=== PATIENT | male | born 1950 | race Caucasian/White ===

== ENCOUNTER 2018-01-08 15:07 | Observation (INO) | payer MEDICARE ==
[2018-01-08] MEDS ORDERED: solu-MEDROL 125 MG IV ONE (15:24)
[2018-01-08] MEDS ORDERED: DUONEB 0.5-3 MG/3 ml Neb IH ONE ×2 (15:24→15:49)
[2018-01-08] MEDS ORDERED: ROCEPHIN 1 Gm-D5w 50 ml Bag** 1 G/50 ML IVPB IV STA (15:24)
--- NOTE | 2018-01-08 15:33 | ERPHSYRPT ---
- History of Present Illness Time Seen by Provider: 01/08/18 15:15 Source: patient Exam Limitations: clinical condition Patient Subjective Stated Complaint: SOB since Friday, worse today Triage Nursing Assessment: Pt presents to the ED with complaints of SOB. Pt states he was put on Zithromax on Friday for complaint, states SOB became worse today. Pt denies pain or other complaints, no distress noted, skin PWD. Physician History: PATIENT WITH A HISTORY OF COPD, AND HYPERTENSION COMPLAINS OF COUGH ASSOCIATED WITH DYSPNEA UPON EXERTION X 5 DAYS, EVALUATED BY PRIMARY CARE PROVIDER PLACED ONTO ANTIBIOTIC ZITHROMAX AND MEDROL DOSE PACK 2 DAYS AGO WITH NO IMPROVEMENT. PATIENT COMPLAINS OF INCREASING DYSPNEA TODAY, NO IMPROVEMENT WITH NEBULIZERS. DENIES FEVER, CHILLS OR CHEST PAIN. Timing/Duration: day(s) Activities at Onset: activity Severity of Dyspnea-Max: moderate Severity of Dyspnea-Current: moderate Possible Cause: allergen exposure Modifying Factors: Improves With: albuterol nebulizer, exertion Associated Symptoms: constant International travel in last 2 weeks: No Allergies/Adverse Reactions: No Known Drug Allergies Allergy (Verified 01/08/18 15:12) Home Medications: Budesonide/Formoterol Fumarate [Symbicort 160-4.5 Mcg Inhaler] 2 puff IN DAILY 01/08/18 [History] Gemfibrozil 600 mg PO DAILY 01/08/18 [History] Levothyroxine Sodium 50 mcg PO DAILY 01/08/18 [History] Lisinopril 10 mg PO DAILY 01/08/18 [History] Montelukast Sodium 10 mg [Singulair 10 MG] 10 mg PO DAILY 01/08/18 [History] Roflumilast [Daliresp] 500 mcg PO DAILY 01/08/18 [History] Verapamil HCl 40 mg PO TID 01/08/18 [History] methylPREDNISolone [Methylprednisolone] 1 ea PO DAILY 01/08/18 [History] Hx Tetanus, Diphtheria Vaccination/Date Given: No Hx Influenza Vaccination/Date Given: Yes Hx Pneumococcal Vaccination/Date Given: Yes Immunizations Up to Date: Yes - Review of Systems Constitutional: No Fever, No Chills Eyes: No Symptoms Ears, Nose, & Throat: No Symptoms Respiratory: Cough, Dyspnea, Dyspnea on Exertion (GREER) Cardiac: No Symptoms, No Chest Pain, No Edema, No Syncope Abdominal/Gastrointestinal: No Symptoms, No Abdominal Pain, No Nausea, No Vomiting, No Diarrhea Genitourinary Symptoms: No Symptoms, No Dysuria Musculoskeletal: No Symptoms, No Back Pain, No Neck Pain Skin: No Rash Neurological: No Dizziness, No Focal Weakness, No Sensory Changes Psychological: No Symptoms Endocrine: No Symptoms All Other Systems: Reviewed and Negative - Past Medical History Neurological History: No Pertinent History Cardiac History: Hypertension Respiratory History: COPD Endocrine Medical History: Hypothyroidism Musculoskeletal History: No Pertinent History - Past Surgical History Past Surgical History: Yes Neuro Surgical History: No Pertinent History Cardiac: No Pertinent History Respiratory: No Pertinent History Gastrointestinal: Hernia Repair Genitourinary: No Pertinent History Musculoskeletal: No Pertinent History Male Surgical History: No Pertinent History - Social History Smoking Status: Former smoker Exposure to second hand smoke: Yes Drug Use: none Patient Lives Alone: No - Nursing Vital Signs Nursing Vital Signs: Initial Vital Signs Temperature 97.8 F 01/08/18 15:08 Pulse Rate 116 H 01/08/18 15:08 Respiratory Rate 16 01/08/18 15:08 Blood Pressure 184/112 01/08/18 15:08 O2 Sat by Pulse Oximetry 95 01/08/18 15:08 Pain Scale Pain Intensity 0 - Physical Exam General Appearance: mild distress Eye Exam: PERRL/EOMI Neck Exam: normal inspection, supple Respiratory Exam: diminished breath sounds, other (NO EVIDENCE OF WHEEZES OR RHONCHI) Cardiovascular/Chest Exam: normal heart sounds, regular rate/rhythm Abdominal/Gastrointestinal Exam: soft, No tenderness, No distention, No mass Extremity Exam: non-tender, normal range of motion, normal inspection, no calf tenderness, no pedal edema Peripheral Pulses Exam: carotid (R): 2+, carotid (L): 2+, femoral (R): 2+, femoral (L): 2+, dorsalis-pedis (R): 2+, dorsalis-pedis (L): 2+ Neurologic Exam: alert, oriented x 3, cooperative, proofsheet corrector II-XII nml as tested, sensation nml, No motor deficits Skin Exam: normal color, warm, No dry SpO2 Interpretation: normal SpO2: 95 Oxygen Delivery: Room Air - Course EKG Interpreted by Me: RATE, NORMAL AXIS, Non-specific ST Changes (RATE 111) - Radiology Exams Chest X-ray Interpretation: Discussed w/ radiologist, Negative, No Infiltrates Ordered Tests: Active Orders 24 hr Category Date Time Status Up Ad Valeria ROUTINE Activity 01/08/18 17:59 Ordered Code Status Order ROUTINE Care 01/08/18 17:59 Ordered EKG-ER Only STAT Care 01/08/18 15:24 Active IV Care Q6H Care 01/08/18 17:59 Ordered IV Insertion STAT Care 01/08/18 15:24 Active Oxygen-ED Only NASAL CANNULA 2 lpm Care 01/08/18 15:[address] in Observation ROUTINE Care 01/08/18 17:59 Ordered Terrance Hose, Apply ROUTINE Care 01/08/18 17:59 Ordered Telemetry ROUTINE Care 01/08/18 17:59 Ordered Vital Signs Q4H Care 01/08/18 17:59 Ordered Weight,Daily 0600 Care 01/08/18 17:59 Ordered Regular Diet Diet 01/08/18 Breakfast Ordered CHEST 1 VIEW (PORTABLE) Stat Exams 01/08/18 15:25 Completed PULMONARY PERF VENTILATION [NUCMED] Stat Exams 01/08/18 16:32 Ordered BLOOD CULTURE Stat Lab 01/08/18 15:55 Received CBC W DIFF Stat Lab 01/08/18 15:20 Completed CMP Stat Lab 01/08/18 15:20 Completed D-DIMER QUANTITATION Stat Lab 01/08/18 15:20 Completed Lactic Acid Stat Lab 01/08/18 16:00 Completed MAGNESIUM Stat Lab 01/08/18 15:20 Completed Manual Differential NC Stat Lab 01/08/18 15:20 Completed TROPONIN Q3H Lab 01/08/18 15:20 Completed TROPONIN Q3H Lab 01/08/18 18:30 Ordered TROPONIN Q3H Lab 01/08/18 21:30 Ordered TROPONIN Q3H Lab 01/09/18 00:30 Ordered TROPONIN Q3H Lab 01/09/18 03:30 Ordered Oxygen NASAL CANNULA 2 lpm RT 01/08/18 17:59 Ordered Peak Expiratory Flow Rate ONCE RT 01/08/18 15:58 Completed Pulse Oximetry CONTINUOUS RT 01/08/18 18:00 Ordered Respiratory Nebulizer Q4H RT 01/08/18 17:59 Ordered Respiratory Nebulizer STAT RT 01/08/18 15:26 Completed Respiratory Nebulizer STAT RT 01/08/18 18:04 Ordered Respiratory Therapy Consult ROUTINE RT 01/08/18 17:59 Ordered Transfer Order Routine Transfer 01/08/18 Ordered Medication Summary Generic Name Dose Route Start Last Admin Trade Name Bartolome PRN Reason Stop Dose Admin Acetaminophen 650 mg 01/08/18 18:01 Tylenol 325 Mg PO 02/07/18 18:00 Q4H PRN PRN PAIN AND/OR FEVER Albuterol/Ipratropium 3 ml 01/08/18 19:00 Duoneb 0.5-3 Mg/3 Ml Neb IH 02/07/18 18:59 Q4HRT TERESA Sodium Chloride 1,000 mls @ 50 mls/hr 01/08/18 15:30 01/08/18 15:40 Sodium Chloride 0.9% 1000 Ml IV 02/07/18 15:29 50 mls/hr .Q20H TERESA Administration Azithromycin 500 mg in 250 mls @ 250 mls/hr 01/08/18 17:07 01/08/18 17:23 Zithromax 500 Mg/ 250 Ml Nacl Premix IV 01/08/18 18:06 250 mls/hr STAT STA 250 mls/hr Administration Azithromycin 500 mg in 250 mls @ 250 mls/hr 01/09/18 10:00 Zithromax 500 Mg/ 250 Ml Nacl Premix IV 02/08/18 09:59 Q24H10 TERESA Ceftriaxone Sodium/Dextrose 1 g in 50 mls @ 100 mls/hr 01/09/18 10:00 Rocephin 1 Gm-D5w 50 Ml Bag IV 02/08/18 09:59 Q24H10 TERESA Discontinued Medications Generic Name Dose Route Start Last Admin Trade Name Bartolome PRN Reason Stop Dose Admin Albuterol/Ipratropium 3 ml 01/08/18 15:24 01/08/18 15:54 Duoneb 0.5-3 Mg/3 Ml Neb IH 01/08/18 15:25 3 ml STAT ONE Administration Albuterol/Ipratropium Confirm 01/08/18 15:49 Duoneb 0.5-3 Mg/3 Ml Neb Administered 01/08/18 15:50 Dose 3 ml IH .STK-MED ONE Guaifenesin/Codeine Phosphate 10 ml 01/08/18 17:06 01/08/18 17:23 Robitussin Ac Syrup Unit Dose Cup PO 01/08/18 17:07 10 ml STAT STA Administration Guaifenesin/Codeine Phosphate Confirm 01/08/18 17:20 Robitussin Ac Syrup Unit Dose Cup Administered 01/08/18 17:21 Dose 10 ml .ROUTE .STK-MED ONE Ceftriaxone Sodium/Dextrose 1 g in 50 mls @ 100 mls/hr 01/08/18 15:24 16:08 Rocephin 1 Gm-D5w 50 Ml Bag IV 01/08/18 15:53 100 mls/hr STAT STA 100 mls/hr Administration Ceftriaxone Sodium/Dextrose Confirm 01/08/18 15:37 Rocephin 1 Gm-D5w 50 Ml Bag Administered 01/08/18 15:38 Dose 1 g in 50 mls @ ud IV .STK-MED ONE Azithromycin Confirm 01/08/18 17:20 Zithromax 500 Mg/ 250 Ml Nacl Premix Administered 01/08/18 17:21 Dose 500 mg in 250 mls @ ud IV .STK-MED ONE Methylprednisolone Sodium Succinate 125 mg 01/08/18 15:24 01/08/18 15:40 Solu-Medrol 125 Mg IV 01/08/18 15:25 125 mg STAT ONE Administration Methylprednisolone Sodium Succinate Confirm 01/08/18 15:37 Solu-Medrol 125 Mg Administered 01/08/18 15:38 Dose 125 mg .ROUTE .STK-MED ONE Lab/Rad Data: Laboratory Result Diagrams 01/08/18 15:20 01/08/18 15:20 Laboratory Results 01/08/18 01/08/18 01/08/18 Range/Units 16:00 15:20 15:20 WBC (4.0-10.5) K/mm3 RBC (4.1-5.6) M/mm3 Hgb (12.5-18.0) gm/dl Hct (42-50) % MCV (78-100) fl MCH (26-32) pg MCHC (32-36) g/dl RDW (11.5-14.0) % Plt Count (150-450) K/mm3 MPV (6-9.5) fl Absolute Granulocytes (1.4-6.9) Segmented Neutrophils (36.-66.) % Band Neutrophils (0.0-2.0) % Lymphocytes (Manual) (24-44) % Monocytes (Manual) (0.0-12.0) % Eosinophils (Manual) (0.00-3.0) % Platelet Estimate (NORMAL) RBC Morphology Anisocytosis D-Dimer 736 H* (215-500) ng/mL Sodium (137-145) mmol/L Potassium (3.5-5.1) mmol/L Chloride (98-107) mmol/L Carbon Dioxide (22-30) mmol/L Anion Gap (5-15) MEQ/L BUN (9-20) mg/dL Creatinine (0.66-1.25) mg/dL Estimated GFR ML/MIN Glucose (74-106) mg/dL Lactic Acid 1.8 (0.4-2.0) Calcium (8.4-10.2) mg/dL Magnesium (1.6-2.3) mg/dL Total Bilirubin (0.2-1.3) mg/dL AST (17-59) U/L ALT (0-50) U/L Alkaline Phosphatase (38-126) U/L Troponin I < 0.012 (0.000-0.034) ng/mL Serum Total Protein (6.3-8.2) g/dL Albumin (3.5-5.0) g/dL 01/08/18 01/08/18 Range/Units 15:20 15:20 WBC 15.0 H (4.0-10.5) K/mm3 RBC 3.80 L (4.1-5.6) M/mm3 Hgb 12.1 L (12.5-18.0) gm/dl Hct 36.0 L (42-50) % MCV 94.7 (78-100) fl MCH 31.8 (26-32) pg MCHC 33.6 (32-36) g/dl RDW 12.9 (11.5-14.0) % Plt Count 438 (150-450) K/mm3 MPV 10.7 H (6-9.5) fl Absolute Granulocytes 11.92 H (1.4-6.9) Segmented Neutrophils 84 H (36.-66.) % Band Neutrophils 1 (0.0-2.0) % Lymphocytes (Manual) 9 L (24-44) % Monocytes (Manual) 5 (0.0-12.0) % Eosinophils (Manual) 1 (0.00-3.0) % Platelet Estimate NORMAL (NORMAL) RBC Morphology ABNORMAL Anisocytosis 1+ D-Dimer (215-500) ng/mL Sodium 141 (137-145) mmol/L Potassium 4.4 (3.5-5.1) mmol/L Chloride 106 (98-107) mmol/L Carbon Dioxide 22 (22-30) mmol/L Anion Gap 17.3 H (5-15) MEQ/L BUN 36 H (9-20) mg/dL Creatinine 1.86 H (0.66-1.25) mg/dL Estimated GFR 38.6 ML/MIN Glucose 104 (74-106) mg/dL Lactic Acid (0.4-2.0) Calcium 9.7 (8.4-10.2) mg/dL Magnesium 2.3 (1.6-2.3) mg/dL Total Bilirubin 0.20 (0.2-1.3) mg/dL AST 23 (17-59) U/L ALT 17 (0-50) U/L Alkaline Phosphatase 68 (38-126) U/L Troponin I (0.000-0.034) ng/mL Serum Total Protein 7.8 (6.3-8.2) g/dL Albumin 4.4 (3.5-5.0) g/dL - Progress Progress: improved Air Movement: fair Progress Note: 01/08/18 15:32 ADMINISTERED DUO NEB AEROSOL TX, IV NORMAL SALINE 50ML/HR, SOLUMEDDROL 125MG, ROCEPHIN 1G, AFTER 2 SETS OF BLOOD CULTURES 01/08/18 18:05 ELEVATED DDIMER 736 AND GFR 36 WILL SCHEDULE FOR V/Q SCAN TOMORROW Blood Culture(s) Obtained: Yes Antibiotics given: Yes Discussed with Dr.: Watkins (DISCUSSED WITH DR WATKINS AT 1750 FOR OBSERVATION) - Departure Time of Disposition: 18:12 Departure Disposition: Observation Clinical Impression: EXACERBATION COPD Condition: Stable Critical Care Time: No Referrals: GISEL SMALL [Primary Care Provider] -
[2018-01-08] MEDS ORDERED: solu-MEDROL 125 MG ONE (15:37)
[2018-01-08] MEDS ORDERED: ROCEPHIN 1 Gm-D5w 50 ml Bag** 1 G/50 ML IVPB IV ONE (15:37)
[2018-01-08] MEDS: Sodium Chloride 0.9% 1000 ML 1,000 ML IV SCH ×2 (15:40→21:27)
[2018-01-08 15:45] LABS: Granulocyte Absolute (ANC) 11.92 (1.4-6.9); Hemoglobin 12.1 gm/dl (12.5-18.0); Mean Cell Volume 94.7 fl (78-100); Mean Corpuscular Hemoglobin 31.8 pg (26-32); Mean Corpuscular Hgb Concent. 33.6 g/dl (32-36); Mean Platelet Volume 10.7 fl (6-9.5); Platelet Count 438 K/mm3 (150-450); Red Cell Distribution Width 12.9 % (11.5-14.0)
[2018-01-08 16:11] LABS: ALBUMIN 4.4 g/dL (3.5-5.0); ANION GAP 17.3 MEQ/L (5-15); BILIRUBIN,TOTAL 0.2 mg/dL (0.2-1.3); Calcium 9.7 mg/dL (8.4-10.2); Creatinine 1 1.86 mg/dL (0.66-1.25); Potassium 4.4 mmol/L (3.5-5.1); Total Protein 7.8 g/dL (6.3-8.2)
--- NOTE | 2018-01-08 16:27 | XRAY ---
Indication: Cough. Dyspnea. Comparison: November 21, 2017. Portable apical lordotic chest again demonstrates normal heart and lungs. Bony thorax intact again with mild degenerative changes. No new/acute findings.
[2018-01-08 16:31] LABS: ANISOCYTOSIS 1+; BAND 1 % (0.0-2.0); Eosinophil 1 % (0.00-3.0); Lymphocytes 9 % (24-44); Monocyte 5 % (0.0-12.0); Neutrophils 84 % (36.-66.); Platelet Estimate NORMAL (NORMAL); Total Cells Counted 100
[2018-01-08] MEDS ORDERED: Robitussin AC Syrup Unit Dose Cup PO STA (17:06)
[2018-01-08] MEDS ORDERED: Zithromax 500 MG/ 250 ML NaCl Premix 500 MG/250 ML IVPB IV STA (17:07)
[2018-01-08] MEDS ORDERED: Robitussin AC Syrup Unit Dose Cup ONE (17:20)
[2018-01-08] MEDS ORDERED: Zithromax 500 MG/ 250 ML NaCl Premix 500 MG/250 ML IVPB IV ONE (17:20)
[2018-01-08] MEDS ORDERED: TYLENOL 325 MG PO PRN (18:01)
[2018-01-08] MEDS ORDERED: Xopenex 1.25 MG/0.5 ML UD NEBULE IH PRN (18:03)
[2018-01-08] MEDS: solu-MEDROL 125 MG IV SCH ×2 (18:47→23:13)
[2018-01-08] MEDS ORDERED: DUONEB 0.5-3 MG/3 ml Neb IH SCH (19:00)
[2018-01-08] MEDS: PROVENTIL 2.5 MG/3 ML NEB IH SCH (21:16)
[2018-01-08] MEDS: Advair Hfa 230/21 Mcg COMMON CANISTER IH SCH (21:17)
[2018-01-08] MEDS ORDERED: Robitussin AC Syrup Unit Dose Cup PO PRN (22:02)
[2018-01-08] MEDS ORDERED: ECOTRIN 81 MG PO SCH (22:07)
[2018-01-08] MEDS: LOPID 600 MG PO SCH (22:19)
[2018-01-08] MEDS: CALAN 80 MG PO SCH (22:20)
[2018-01-09] MEDS: solu-MEDROL 125 MG IV SCH ×2 (05:58→11:56)
[2018-01-09] MEDS: Advair Hfa 230/21 Mcg COMMON CANISTER IH SCH (07:13)
[2018-01-09] MEDS: PROVENTIL 2.5 MG/3 ML NEB IH SCH (07:13)
[2018-01-09] MEDS: CALAN 80 MG PO SCH (09:47)
[2018-01-09] MEDS: LOPID 600 MG PO SCH (09:47)
[2018-01-09] MEDS ORDERED: Zestril 10 MG PO SCH (10:00)
[2018-01-09] MEDS ORDERED: Zithromax 500 MG/ 250 ML NaCl Premix 500 MG/250 ML IVPB IV SCH (10:00)
[2018-01-09] MEDS ORDERED: SYNTHROID 50 MCG PO SCH (10:00)
[2018-01-09] MEDS ORDERED: ROCEPHIN 1 Gm-D5w 50 ml Bag** 1 G/50 ML IVPB IV SCH (10:00)
[2018-01-09] MEDS ORDERED: Singulair 10 MG PO SCH (10:00)
[2018-01-09 12:11] VITALS: BP 116/64; PULSE 87; O2SAT 96
--- NOTE | 2018-01-09 12:37 | PCM.SSS ---
History of Present Illness - Chief Complaint Chief Complaint: Shortness of Breath for 2-3 days History of Present Illness: Mr.GRAHAM HARDY is a 67 year old male. - Review of Systems Constitutional: No Fever, No Chills Eyes: No Symptoms Ears, Nose, & Throat: No Symptoms Respiratory: No Cough, No Short Of Breath Cardiac: No Chest Pain, No Edema, No Syncope Abdominal/Gastrointestinal: No Abdominal Pain, No Nausea, No Vomiting, No Diarrhea Genitourinary Symptoms: No Dysuria Musculoskeletal: No Back Pain, No Neck Pain Skin: No Rash Neurological: No Dizziness, No Focal Weakness, No Sensory Changes Psychological: No Symptoms Endocrine: No Symptoms Hematologic/Lymphatic: No Symptoms Immunological/Allergic: No Symptoms Medications & Allergies Home Medications: Home Medication List Aspirin 81 mg PO HS 01/08/18 [History Confirmed 01/08/18] Budesonide/Formoterol Fumarate [Symbicort 160-4.5 Mcg Inhaler] 2 puff IN BID [History Confirmed 01/08/18] Gemfibrozil 600 mg PO BID 01/08/18 [History Confirmed 01/08/18] Levothyroxine Sodium 50 mcg PO DAILY 01/08/18 [History Confirmed 01/08/18] Lisinopril 10 mg PO DAILY 01/08/18 [History Confirmed 01/08/18] Montelukast Sodium 10 mg [Singulair 10 MG] 10 mg PO DAILY 01/08/18 [History Confirmed 01/08/18] Roflumilast [Daliresp] 500 mcg PO DAILY 01/08/18 [History Confirmed ] Verapamil HCl 40 mg PO TID 01/08/18 [History Confirmed 01/08/18] Allergies/Adverse Reactions: Allergies Allergy/AdvReac Type Severity Reaction Status Date / Time No Known Drug Allergies Allergy Verified 01/08/18 15:12 - Past Medical History Past Medical History: Yes Neurological History: No Pertinent History ENT History: No Pertinent History Cardiac History: Hypertension Respiratory History: COPD Endocrine Medical History: Hypothyroidism Musculoskelatal History: No Pertinent History GI Medical History: No Pertinent History History: No Pertinent History Pyscho-Social History: No Pertinent History Male Reproductive Disorders: No Pertinent History - Past Surgical History Past Surgical History: Yes Neuro Surgical History: No Pertinent History Cardiac History: No Pertinent History Respiratory Surgery: No Pertinent History GI Surgical History: Hernia Repair Genitourinary Surgical Hx: No Pertinent History Musculskeletal Surgical Hx: No Pertinent History Male Surgical History: No Pertinent History - Social History Smoking Status: Former smoker Exposure to second hand smoke: Yes Alcohol: None Drug Use: none - Physical Exam Vital Signs: Vital Signs - 24 hr Temp Pulse Resp BP Pulse Ox 01/09/18 12:09 97.7 F 87 20 116/64 96 01/09/18 07:16 97.8 F 78 20 131/77 96 01/09/18 04:20 97.9 F 76 18 106/57 98 01/09/18 04:00 18 01/09/18 00:00 98.5 F 96 H 18 117/53 95 01/08/18 21:37 98.4 F 93 H 18 136/72 95 01/08/18 20:21 98.4 F 93 H 18 136/72 95 01/08/18 19:15 98 H 20 95 01/08/18 18:06 95 01/08/18 17:59 90 20 95 01/08/18 16:10 89 20 134/80 95 01/08/18 15:58 97 H 20 96 01/08/18 15:52 18 98 01/08/18 15:08 97.8 F 116 H 16 184/112 95 Oxygen-Last 24 hours O2 Percentage 2 Liters = 28% General Appearance: no apparent distress, alert Neurologic Exam: alert, oriented x 3, cooperative, normal mood/affect, nml cerebellar function, nml station & gait, sensation nml, No motor deficits Eye Exam: PERRL/EOMI, eyes nml inspection Ears, Nose, Throat Exam: normal ENT inspection, TMs normal, pharynx normal, moist mucous membranes Neck Exam: normal inspection, non-tender, supple, full range of motion Respiratory Exam: normal breath sounds, lungs clear, No respiratory distress Cardiovascular Exam: regular rate/rhythm, normal heart sounds, normal peripheral pulses Gastrointestinal/Abdomen Exam: soft, normal bowel sounds, No tenderness, No mass Back Exam: normal inspection, normal range of motion, No CVA tenderness, No vertebral tenderness Extremity Exam: normal inspection, normal range of motion, pelvis stable Skin Exam: normal color, warm, dry, No rash Lymphatic Exam: No adenopathy Results - Labs Lab/Micro Results: Lab Results-Last 24 Hours 01/08/18 01/08/18 01/08/18 Range/Units 15:20 15:20 15:20 WBC 15.0 H (4.0-10.5) K/mm3 RBC 3.80 L (4.1-5.6) M/mm3 Hgb 12.1 L (12.5-18.0) gm/dl Hct 36.0 L (42-50) % MCV 94.7 (78-100) fl MCH 31.8 (26-32) pg MCHC 33.6 (32-36) g/dl RDW 12.9 (11.5-14.0) % Plt Count 438 (150-450) K/mm3 MPV 10.7 H (6-9.5) fl Absolute Granulocytes 11.92 H (1.4-6.9) Segmented Neutrophils 84 H (36.-66.) % Band Neutrophils 1 (0.0-2.0) % Lymphocytes (Manual) 9 L (24-44) % Monocytes (Manual) 5 (0.0-12.0) % Eosinophils (Manual) 1 (0.00-3.0) % Platelet Estimate NORMAL (NORMAL) RBC Morphology ABNORMAL Anisocytosis 1+ D-Dimer 736 H* (215-500) ng/mL Sodium 141 (137-145) mmol/L Potassium 4.4 (3.5-5.1) mmol/L Chloride 106 (98-107) mmol/L Carbon Dioxide 22 (22-30) mmol/L Anion Gap 17.3 H (5-15) MEQ/L BUN 36 H (9-20) mg/dL Creatinine 1.86 H (0.66-1.25) mg/dL Estimated GFR 38.6 ML/MIN Glucose 104 (74-106) mg/dL Lactic Acid (0.4-2.0) Calcium 9.7 (8.4-10.2) mg/dL Magnesium 2.3 (1.6-2.3) mg/dL Total Bilirubin 0.20 (0.2-1.3) mg/dL AST 23 (17-59) U/L ALT 17 (0-50) U/L Alkaline Phosphatase 68 (38-126) U/L Troponin I (0.000-0.034) ng/mL Serum Total Protein 7.8 (6.3-8.2) g/dL Albumin 4.4 (3.5-5.0) g/dL 01/08/18 01/08/18 01/08/18 Range/Units 15:20 16:00 18:40 WBC (4.0-10.5) K/mm3 RBC (4.1-5.6) M/mm3 Hgb (12.5-18.0) gm/dl Hct (42-50) % MCV (78-100) fl MCH (26-32) pg MCHC (32-36) g/dl RDW (11.5-14.0) % Plt Count (150-450) K/mm3 MPV (6-9.5) fl Absolute Granulocytes (1.4-6.9) Segmented Neutrophils (36.-66.) % Band Neutrophils (0.0-2.0) % Lymphocytes (Manual) (24-44) % Monocytes (Manual) (0.0-12.0) % Eosinophils (Manual) (0.00-3.0) % Platelet Estimate (NORMAL) RBC Morphology Anisocytosis D-Dimer (215-500) ng/mL Sodium (137-145) mmol/L Potassium (3.5-5.1) mmol/L Chloride (98-107) mmol/L Carbon Dioxide (22-30) mmol/L Anion Gap (5-15) MEQ/L BUN (9-20) mg/dL Creatinine (0.66-1.25) mg/dL Estimated GFR ML/MIN Glucose (74-106) mg/dL Lactic Acid 1.8 (0.4-2.0) Calcium (8.4-10.2) mg/dL Magnesium (1.6-2.3) mg/dL Total Bilirubin (0.2-1.3) mg/dL AST (17-59) U/L ALT (0-50) U/L Alkaline Phosphatase (38-126) U/L Troponin I < 0.012 < 0.012 (0.000-0.034) ng/mL Serum Total Protein (6.3-8.2) g/dL Albumin (3.5-5.0) g/dL 01/08/18 01/09/18 01/09/18 Range/Units 21:15 00:45 03:25 WBC (4.0-10.5) K/mm3 RBC (4.1-5.6) M/mm3 Hgb (12.5-18.0) gm/dl Hct (42-50) % MCV (78-100) fl MCH (26-32) pg MCHC (32-36) g/dl RDW (11.5-14.0) % Plt Count (150-450) K/mm3 MPV (6-9.5) fl Absolute Granulocytes (1.4-6.9) Segmented Neutrophils (36.-66.) % Band Neutrophils (0.0-2.0) % Lymphocytes (Manual) (24-44) % Monocytes (Manual) (0.0-12.0) % Eosinophils (Manual) (0.00-3.0) % Platelet Estimate (NORMAL) RBC Morphology Anisocytosis D-Dimer (215-500) ng/mL Sodium (137-145) mmol/L Potassium (3.5-5.1) mmol/L Chloride (98-107) mmol/L Carbon Dioxide (22-30) mmol/L Anion Gap (5-15) MEQ/L BUN (9-20) mg/dL Creatinine (0.66-1.25) mg/dL Estimated GFR ML/MIN Glucose (74-106) mg/dL Lactic Acid (0.4-2.0) Calcium (8.4-10.2) mg/dL Magnesium (1.6-2.3) mg/dL Total Bilirubin (0.2-1.3) mg/dL AST (17-59) U/L ALT (0-50) U/L Alkaline Phosphatase (38-126) U/L Troponin I < 0.012 < 0.012 < 0.012 (0.000-0.034) ng/mL Serum Total Protein (6.3-8.2) g/dL Albumin (3.5-5.0) g/dL - Radiology Impressions Radiology Exams & Impressions: Radiology Procedures Category Date Time Status CHEST 1 VIEW (PORTABLE) Stat Exams 01/08/18 15:25 Completed - Other Procedures and Tests Respiratory Therapy 01/08/18 17:59 Oxygen NASAL CANNULA 2 lpm Respiratory Nebulizer UD 01/08/18 19:00 Respiratory MDI BID Assessment/Plan (1) COPD with acute exacerbation Current Visit: Yes Status: Acute Onset Date: ~01/08/18 Code(s): [place]44.1 - CHRONIC OBSTRUCTIVE PULMONARY DISEASE W (ACUTE) EXACERBATION (2) Decreased renal function Current Visit: Yes Status: Acute Onset Date: ~01/08/18 Hospital Summary - Hospital Course Hospital Course: Chief Complaint Diagnosis Shortness of Breath for 2-3 days Allergies Allergy/AdvReac Type Severity Reaction Status Date / Time No Known Drug Allergies Allergy Verified 01/08/18 15:12 Vital Signs (Last 24 hours) Temp Pulse Resp BP Pulse Ox 01/09/18 12:09 97.7 F 87 20 116/64 96 01/09/18 07:16 97.8 F 78 20 131/77 96 01/09/18 04:20 97.9 F 76 18 106/57 98 01/09/18 04:00 18 01/09/18 00:00 98.5 F 96 H 18 117/53 95 01/08/18 21:37 98.4 F 93 H 18 136/72 95 01/08/18 20:21 98.4 F 93 H 18 136/72 95 01/08/18 19:15 98 H 20 95 01/08/18 18:06 95 01/08/18 17:59 90 20 95 01/08/18 16:10 89 20 134/80 95 01/08/18 15:58 97 H 20 96 01/08/18 15:52 18 98 01/08/18 15:08 97.8 F 116 H 16 184/112 95 Home Medications Medication Instructions Recorded Confirmed Last Taken Type Aspirin 81 mg PO HS 01/08/18 01/08/18 01/07/18 History Budesonide/Formoterol Fumarate 2 puff IN BID 01/08/18 01/08/18 01/08/18 History [Symbicort 160-4.5 Mcg Inhaler] Gemfibrozil 600 mg PO BID 01/08/18 01/08/18 01/08/18 History Levothyroxine Sodium 50 mcg PO DAILY 01/08/18 01/08/18 01/08/18 History Lisinopril 10 mg PO DAILY 01/08/18 01/08/18 01/08/18 History Montelukast Sodium 10 mg 10 mg PO DAILY 01/08/18 01/08/18 01/08/18 History [Singulair 10 MG] Roflumilast [Daliresp] 500 mcg PO DAILY 01/08/18 01/08/18 01/08/18 History Verapamil HCl 40 mg PO TID 01/08/18 01/08/18 01/08/18 History Current Medications Generic Name Dose Route Start Last Admin Trade Name Freq PRN Reason Stop Dose Admin Acetaminophen 650 mg 01/08/18 18:01 Tylenol 325 Mg PO 02/07/18 18:00 Q4H PRN PRN PAIN AND/OR FEVER Albuterol Sulfate 2.5 mg 01/08/18 19:00 01/09/18 07:13 Proventil 2.5 Mg/3 Ml Neb IH 2.5 mg BIDRT TERESA Administration Aspirin 81 mg 01/08/18 22:07 01/08/18 22:20 Ecotrin 81 Mg PO 02/07/18 21:59 81 mg QHS TERESA Administration Gemfibrozil 600 mg 01/08/18 22:00 01/09/18 09:47 Lopid 600 Mg PO 02/07/18 21:59 600 mg BID TERESA Administration Guaifenesin/Codeine Phosphate 10 ml 01/08/18 22:02 01/08/18 22:20 Robitussin Ac Syrup Unit Dose Cup PO 02/07/18 22:01 10 ml QIDP PRN Administration COUGH Sodium Chloride 1,000 mls @ 50 mls/hr 01/08/18 15:30 01/08/18 21:27 Sodium Chloride 0.9% 1000 Ml IV 02/07/18 15:29 50 mls/hr .Q20H TERESA Administration Azithromycin 500 mg in 250 mls @ 250 mls/hr 01/09/18 10:00 01/09/18 10:34 Zithromax 500 Mg/ 250 Ml Nacl Premix IV 02/08/18 09:59 250 mls/hr Q24H10 TERESA Administration Ceftriaxone Sodium/Dextrose 1 g in 50 mls @ 100 mls/hr 01/09/18 10:00 09:47 Rocephin 1 Gm-D5w 50 Ml Bag IV 02/08/18 09:59 100 mls/hr Q24H10 TERESA Administration Levalbuterol HCl 1.25 mg 01/08/18 18:03 Xopenex 1.25 Mg/0.5 Ml Ud Nebule IH 02/07/18 18:02 Q2HPRN PRN DIFFICULTY BREATHING Levothyroxine Sodium 50 mcg 01/09/18 10:00 01/09/18 09:47 Synthroid 50 Mcg PO 02/08/18 09:59 50 mcg QAM TERESA Administration Lisinopril 10 mg 01/09/18 10:00 01/09/18 09:47 Zestril 10 Mg PO 02/08/18 09:59 10 mg DAILY TERESA Administration Methylprednisolone Sodium Succinate 80 mg 01/08/18 18:00 01/09/18 11:56 Solu-Medrol 125 Mg IV 02/07/18 17:59 80 mg Q6HT TERESA Administration Montelukast Sodium 10 mg 01/09/18 10:00 01/09/18 09:47 Singulair 10 Mg PO 02/08/18 09:59 10 mg DAILY TERESA Administration Fluticasone/Salmeterol 2 puff 01/08/18 19:00 01/09/18 07:13 Advair Hfa 230/21 Mcg Common Canister* 02/07/18 18:59 2 puff BIDRT TERESA Administration Verapamil HCl 40 mg 01/08/18 22:00 01/09/18 09:47 Calan 80 Mg PO 02/07/18 21:59 40 mg TID TERESA Administration Discontinued Medications Generic Name Dose Route Start Last Admin Trade Name Freq PRN Reason Stop Dose Admin Albuterol/Ipratropium 3 ml 01/08/18 15:24 01/08/18 15:54 Duoneb 0.5-3 Mg/3 Ml Neb IH 01/08/18 15:25 3 ml STAT ONE Administration Albuterol/Ipratropium Confirm 01/08/18 15:49 Duoneb 0.5-3 Mg/3 Ml Neb Administered 01/08/18 15:50 Dose 3 ml IH .STK-MED ONE Albuterol/Ipratropium 3 ml 01/08/18 19:00 Duoneb 0.5-3 Mg/3 Ml Neb IH 02/07/18 18:59 Q4HRT TERESA Aspirin 81 mg 01/09/18 22:00 Ecotrin 81 Mg PO 02/08/18 21:59 QHS TERESA Guaifenesin/Codeine Phosphate 10 ml 01/08/18 17:06 01/08/18 17:23 Robitussin Ac Syrup Unit Dose Cup PO 01/08/18 17:07 10 ml STAT STA Administration Guaifenesin/Codeine Phosphate Confirm 01/08/18 17:20 Robitussin Ac Syrup Unit Dose Cup Administered 01/08/18 17:21 Dose 10 ml .ROUTE .STK-MED ONE Ceftriaxone Sodium/Dextrose 1 g in 50 mls @ 100 mls/hr 01/08/18 15:24 16:08 Rocephin 1 Gm-D5w 50 Ml Bag IV 01/08/18 15:53 100 mls/hr STAT STA 100 mls/hr Administration Ceftriaxone Sodium/Dextrose Confirm 01/08/18 15:37 Rocephin 1 Gm-D5w 50 Ml Bag Administered 01/08/18 15:38 Dose 1 g in 50 mls @ ud IV .STK-MED ONE Azithromycin 500 mg in 250 mls @ 250 mls/hr 01/08/18 17:07 01/08/18 17:23 Zithromax 500 Mg/ 250 Ml Nacl Premix IV 01/08/18 18:06 250 mls/hr STAT STA 250 mls/hr Administration Azithromycin Confirm 01/08/18 17:20 Zithromax 500 Mg/ 250 Ml Nacl Premix Administered 01/08/18 17:21 Dose 500 mg in 250 mls @ ud IV .STK-MED ONE Methylprednisolone Sodium Succinate 125 mg 01/08/18 15:24 01/08/18 15:40 Solu-Medrol 125 Mg IV 01/08/18 15:25 125 mg STAT ONE Administration Methylprednisolone Sodium Succinate Confirm 01/08/18 15:37 Solu-Medrol 125 Mg Administered 01/08/18 15:38 Dose 125 mg .ROUTE .STK-MED ONE Intake & Output (Last 24 hours) 01/07/18 01/08/18 01/09/18 01/10/18 11:59 11:59 11:59 11:59 Intake Total 1143 Balance 1143 Weight 97.5 kg Microbiology Results (Last 24 hours) 06/28/18 15:55 Blood Blood Culture Gram Stain - Pending 01/08/18 15:55 Blood Blood Culture - Pending 01/08/18 15:45 Blood Blood Culture Gram Stain - Pending 01/08/18 15:45 Blood Blood Culture - Pending Laboratory Results (Last 24 hours) 01/09/18 01/09/18 01/08/18 03:25 00:45 21:15 WBC RBC Hgb Hct MCV MCH MCHC RDW Plt Count MPV Absolute Granulocytes Segmented Neutrophils Band Neutrophils Lymphocytes (Manual) Monocytes (Manual) Eosinophils (Manual) Platelet Estimate RBC Morphology Anisocytosis D-Dimer Sodium Potassium Chloride Carbon Dioxide Anion Gap BUN Creatinine Estimated GFR Glucose Lactic Acid Calcium Magnesium Total Bilirubin AST ALT Alkaline Phosphatase Troponin I < 0.012 < 0.012 < 0.012 Serum Total Protein Albumin 01/08/18 01/08/18 01/08/18 18:40 16:00 15:20 WBC RBC Hgb Hct MCV MCH MCHC RDW Plt Count MPV Absolute Granulocytes Segmented Neutrophils Band Neutrophils Lymphocytes (Manual) Monocytes (Manual) Eosinophils (Manual) Platelet Estimate RBC Morphology Anisocytosis D-Dimer Sodium Potassium Chloride Carbon Dioxide Anion Gap BUN Creatinine Estimated GFR Glucose Lactic Acid 1.8 Calcium Magnesium Total Bilirubin AST ALT Alkaline Phosphatase Troponin I < 0.012 < 0.012 Serum Total Protein Albumin 01/08/18 01/08/18 01/08/18 15:20 15:20 15:20 WBC 15.0 H RBC 3.80 L Hgb 12.1 L Hct 36.0 L MCV 94.7 MCH 31.8 MCHC 33.6 RDW 12.9 Plt Count 438 MPV 10.7 H Absolute Granulocytes 11.92 H Segmented Neutrophils 84 H Band Neutrophils 1 Lymphocytes (Manual) 9 L Monocytes (Manual) 5 Eosinophils (Manual) 1 Platelet Estimate NORMAL RBC Morphology ABNORMAL Anisocytosis 1+ D-Dimer 736 H* Sodium 141 Potassium 4.4 Chloride 106 Carbon Dioxide 22 Anion Gap 17.3 H BUN 36 H Creatinine 1.86 H Estimated GFR 38.6 Glucose 104 Lactic Acid Calcium 9.7 Magnesium 2.3 Total Bilirubin 0.20 AST 23 ALT 17 Alkaline Phosphatase 68 Troponin I Serum Total Protein 7.8 Albumin 4.4 Orders (Last 24 hours) Category Date Time Status Up Ad Valeria Q1H Activity 01/08/18 17:59 Active Code Status Order Care 01/08/18 17:59 Active EKG-ER Only STAT Care 01/08/18 15:24 Completed IV Care Q6H Care 01/08/18 17:59 Active IV Insertion STAT Care 01/08/18 15:24 Completed Oxygen-ED Only NASAL CANNULA 2 lpm Care 01/08/18 15:[address] in Observation Care 01/08/18 17:59 Active Terrance Murray, Apply ROUTINE Care 01/08/18 17:59 Active Telemetry Q4H Care 01/08/18 17:59 Active Vital Signs Q4H Care 01/08/18 17:59 Active Weight,Daily 0600 Care 01/08/18 17:59 Active CHEST 1 VIEW (PORTABLE) Stat Exams 01/08/18 15:25 Completed BLOOD CULTURE Stat Lab 01/08/18 15:55 Received CBC W DIFF Stat Lab 01/08/18 15:20 Completed CMP Stat Lab 01/08/18 15:20 Completed D-DIMER QUANTITATION Stat Lab 01/08/18 15:20 Completed Lactic Acid Stat Lab 01/08/18 16:00 Completed MAGNESIUM Stat Lab 01/08/18 15:20 Completed Manual Differential NC Stat Lab 01/08/18 15:20 Completed TROPONIN Q3H Lab 01/08/18 15:20 Completed TROPONIN Q3H Lab 01/08/18 18:40 Completed TROPONIN Q3H Lab 01/08/18 21:15 Completed TROPONIN Q3H Lab 01/09/18 00:45 Completed TROPONIN Q3H Lab 01/09/18 03:25 Completed Acetaminophen 325 mg [Tylenol 325 mg] Med 01/08/18 18:01 Active 650 mg PO Q4H PRN PRN Albuterol 2.5 mg/3 ml Neb [Proventil 2.5 mg/3 ml Neb Med 01/08/18 19:00 Active ] 2.5 mg IH BIDRT Albuterol/Ipratropium 3ml Neb* [DUONEB 0.5-3 MG/3 ml Med 01/08/18 15:49 Discontinued Neb] 3 ml IH .STK-MED ONE Albuterol/Ipratropium 3ml Neb* [DUONEB 0.5-3 MG/3 ml Med 01/08/18 19:00 Discontinued Neb] 3 ml IH Q4HRT Albuterol/Ipratropium 3ml Neb* [DUONEB 0.5-3 MG/3 ml Med 01/08/18 15:24 Discontinued Neb] 3 ml IH STAT ONE Aspirin EC 81 mg [Ecotrin 81 mg] Med 01/08/18 22:07 Active 81 mg PO QHS Aspirin EC 81 mg [Ecotrin 81 mg] Med 01/09/18 22:00 Discontinued 81 mg PO QHS Azithromycin 500 mg/250 ml [Zithromax 500 MG/ 250 ML Med 01/09/18 10:00 Active NaCl Premix] 500 mg in 250 ml IV Q24H10 Azithromycin 500 mg/250 ml [Zithromax 500 MG/ 250 ML Med 01/08/18 17:07 Discontinued NaCl Premix] 500 mg in 250 ml IV STAT Azithromycin 500 mg/250 ml [Zithromax 500 MG/ 250 ML Med 01/08/18 17:20 Discontinued NaCl Premix] 500 mg in 250 ml IV UD Ceftriaxone 1 GM/50 ML PREMIX* [ROCEPHIN 1 Gm-D5w 50 ml Med 01/09/18 10:00 Active Bag] 1 g in 50 ml IV Q24H10 Ceftriaxone 1 GM/50 ML PREMIX* [ROCEPHIN 1 Gm-D5w 50 ml Med 01/08/18 15:24 Discontinued Bag] 1 g in 50 ml IV STAT Ceftriaxone 1 GM/50 ML PREMIX* [ROCEPHIN 1 Gm-D5w 50 ml Med 01/08/18 15:37 Discontinued Bag] 1 g in 50 ml IV UD Fluticasone/Salmeterol 230/21 [Advair Hfa 230/21 Mcg Med 01/08/18 19:00 Active COMMON CANISTER*] 2 puff IH BIDRT Gemfibrozil 600 mg [Lopid 600 mg] Med 01/08/18 22:00 Active 600 mg PO BID Guaifenesin/Codeine 5 ml [Robitussin AC Syrup Unit Med 01/08/18 17:20 Discontinued Dose Cup] 10 ml .ROUTE .STK-MED ONE Guaifenesin/Codeine 5 ml [Robitussin AC Syrup Unit Med 01/08/18 22:02 Active Dose Cup] 10 ml PO QIDP PRN Guaifenesin/Codeine 5 ml [Robitussin AC Syrup Unit Med 01/08/18 17:06 Discontinued Dose Cup] 10 ml PO STAT STA Levalbuterol HCl 1.25 MG/0.5M* [Xopenex 1.25 MG/0.5 ML Med 01/08/18 18:03 Active UD NEBULE] 1.25 mg IH Q2HPRN PRN Levothyroxine Sodium 50 Mcg [Synthroid 50 Mcg] Med 01/09/18 10:00 Active 50 mcg PO QAM Lisinopril 10 mg [Zestril 10 MG] Med 01/09/18 10:00 Active 10 mg PO DAILY Methylprednis Sod Succ 125 mg* [solu-MEDROL 125 MG] Med 01/08/18 15:37 Discontinued 125 mg .ROUTE .STK-MED ONE Methylprednis Sod Succ 125 mg* [solu-MEDROL 125 MG] Med 01/08/18 15:24 Discontinued 125 mg IV STAT ONE Methylprednis Sod Succ 125 mg* [solu-MEDROL 125 MG] Med 01/08/18 18:00 Active 80 mg IV Q6HT Montelukast Sodium 10 mg [Singulair 10 MG] Med 01/09/18 10:00 Active 10 mg PO DAILY NaCl 0.9% 1000 ml [Sodium Chloride 0.9% 1000 ML] 1,000 Med 01/08/18 15:30 Active ml IV 50 mls/hr Verapamil HCl 80 mg [Calan 80 mg] Med 01/08/18 22:00 Active 40 mg PO TID Oxygen NASAL CANNULA 2 lpm RT 01/08/18 17:59 Active Peak Expiratory Flow Rate ONCE RT 01/08/18 15:58 Completed Respiratory MDI BID RT 01/08/18 19:00 Active Respiratory Nebulizer STAT RT 01/08/18 15:26 Completed Respiratory Nebulizer STAT RT 01/08/18 18:04 Completed Respiratory Nebulizer UD RT 01/08/18 17:59 Active Respiratory Therapy Consult ROUTINE RT 01/08/18 17:59 Completed Patient Care Notes (Last 24 hours) 01/09/18 10:06 Nursing Note by Sanam Henry Pt refusing VQ scan states he is unable to lay flat for the test. PT became angry stating "I am not doing it" Pt and educated indepth on risk associated with PE blood clots and pts individual risk factors for PE based on lab results. Pt and express understanding of risk Initialized on 01/09/18 10:06 - END OF NOTE 01/09/18 09:49 Nursing Note by GIFTY BATES RISKS DISCUSSED WITH PT REGARDING VG SCAN. PT STATED UNDERSTANDING AND DR. WATKINS NOTIFIED. PT STATES HE JUST HAD A SCAN DONE PER DR Yariel SMALL AND HE TOLD HIM IT WAS GOOD. Initialized on 01/09/18 09:49 - END OF NOTE - Vitals & Intake/Output Vital Signs: Vital Signs Temperature 97.7 F 01/09/18 12:09 Pulse Rate 87 01/09/18 12:09 Respiratory Rate 20 01/09/18 12:09 Blood Pressure 116/64 01/09/18 12:09 O2 Sat by Pulse Oximetry 96 01/09/18 12:09 Oxygen-Last Documented O2 Percentage 2 Liters = 28% Intake & Output: Intake & Output 01/07/18 01/08/18 01/09/18 01/10/18 11:59 11:59 11:59 11:59 Intake Total 1143 Balance 1143 Weight 97.5 kg - Lab Result Diagrams: 01/08/18 15:20 01/08/18 15:20 Lab Results-Last 24 Hrs: Lab Results-Last 24 Hours 01/08/18 01/08/18 01/08/18 Range/Units 15:20 15:20 15:20 WBC 15.0 H (4.0-10.5) K/mm3 RBC 3.80 L (4.1-5.6) M/mm3 Hgb 12.1 L (12.5-18.0) gm/dl Hct 36.0 L (42-50) % MCV 94.7 (78-100) fl MCH 31.8 (26-32) pg MCHC 33.6 (32-36) g/dl RDW 12.9 (11.5-14.0) % Plt Count 438 (150-450) K/mm3 MPV 10.7 H (6-9.5) fl Absolute Granulocytes 11.92 H (1.4-6.9) Segmented Neutrophils 84 H (36.-66.) % Band Neutrophils 1 (0.0-2.0) % Lymphocytes (Manual) 9 L (24-44) % Monocytes (Manual) 5 (0.0-12.0) % Eosinophils (Manual) 1 (0.00-3.0) % Platelet Estimate NORMAL (NORMAL) RBC Morphology ABNORMAL Anisocytosis 1+ D-Dimer 736 H* (215-500) ng/mL Sodium 141 (137-145) mmol/L Potassium 4.4 (3.5-5.1) mmol/L Chloride 106 (98-107) mmol/L Carbon Dioxide 22 (22-30) mmol/L Anion Gap 17.3 H (5-15) MEQ/L BUN 36 H (9-20) mg/dL Creatinine 1.86 H (0.66-1.25) mg/dL Estimated GFR 38.6 ML/MIN Glucose 104 (74-106) mg/dL Lactic Acid (0.4-2.0) Calcium 9.7 (8.4-10.2) mg/dL Magnesium 2.3 (1.6-2.3) mg/dL Total Bilirubin 0.20 (0.2-1.3) mg/dL AST 23 (17-59) U/L ALT 17 (0-50) U/L Alkaline Phosphatase 68 (38-126) U/L Troponin I (0.000-0.034) ng/mL Serum Total Protein 7.8 (6.3-8.2) g/dL Albumin 4.4 (3.5-5.0) g/dL 01/08/18 01/08/18 01/08/18 Range/Units 15:20 16:00 18:40 WBC (4.0-10.5) K/mm3 RBC (4.1-5.6) M/mm3 Hgb (12.5-18.0) gm/dl Hct (42-50) % MCV (78-100) fl MCH (26-32) pg MCHC (32-36) g/dl RDW (11.5-14.0) % Plt Count (150-450) K/mm3 MPV (6-9.5) fl Absolute Granulocytes (1.4-6.9) Segmented Neutrophils (36.-66.) % Band Neutrophils (0.0-2.0) % Lymphocytes (Manual) (24-44) % Monocytes (Manual) (0.0-12.0) % Eosinophils (Manual) (0.00-3.0) % Platelet Estimate (NORMAL) RBC Morphology Anisocytosis D-Dimer (215-500) ng/mL Sodium (137-145) mmol/L Potassium (3.5-5.1) mmol/L Chloride (98-107) mmol/L Carbon Dioxide (22-30) mmol/L Anion Gap (5-15) MEQ/L BUN (9-20) mg/dL Creatinine (0.66-1.25) mg/dL Estimated GFR ML/MIN Glucose (74-106) mg/dL Lactic Acid 1.8 (0.4-2.0) Calcium (8.4-10.2) mg/dL Magnesium (1.6-2.3) mg/dL Total Bilirubin (0.2-1.3) mg/dL AST (17-59) U/L ALT (0-50) U/L Alkaline Phosphatase (38-126) U/L Troponin I < 0.012 < 0.012 (0.000-0.034) ng/mL Serum Total Protein (6.3-8.2) g/dL Albumin (3.5-5.0) g/dL 01/08/18 01/09/18 01/09/18 Range/Units 21:15 00:45 03:25 WBC (4.0-10.5) K/mm3 RBC (4.1-5.6) M/mm3 Hgb (12.5-18.0) gm/dl Hct (42-50) % MCV (78-100) fl MCH (26-32) pg MCHC (32-36) g/dl RDW (11.5-14.0) % Plt Count (150-450) K/mm3 MPV (6-9.5) fl Absolute Granulocytes (1.4-6.9) Segmented Neutrophils (36.-66.) % Band Neutrophils (0.0-2.0) % Lymphocytes (Manual) (24-44) % Monocytes (Manual) (0.0-12.0) % Eosinophils (Manual) (0.00-3.0) % Platelet Estimate (NORMAL) RBC Morphology Anisocytosis D-Dimer (215-500) ng/mL Sodium (137-145) mmol/L Potassium (3.5-5.1) mmol/L Chloride (98-107) mmol/L Carbon Dioxide (22-30) mmol/L Anion Gap (5-15) MEQ/L BUN (9-20) mg/dL Creatinine (0.66-1.25) mg/dL Estimated GFR ML/MIN Glucose (74-106) mg/dL Lactic Acid (0.4-2.0) Calcium (8.4-10.2) mg/dL Magnesium (1.6-2.3) mg/dL Total Bilirubin (0.2-1.3) mg/dL AST (17-59) U/L ALT (0-50) U/L Alkaline Phosphatase (38-126) U/L Troponin I < 0.012 < 0.012 < 0.012 (0.000-0.034) ng/mL Serum Total Protein (6.3-8.2) g/dL Albumin (3.5-5.0) g/dL - Radiology Exams Ordered Rad Exams-Entire Visit: Radiology Procedures Category Date Time Status CHEST 1 VIEW (PORTABLE) Stat Exams 01/08/18 15:25 Completed - Procedures and Test Procedures and Tests throughout Hospitalization: Therapy Orders & Screens 01/08/18 15:26 Respiratory Nebulizer STAT Comment: Diagnosis: Shortness of Breath 01/08/18 15:58 Peak Expiratory Flow Rate ONCE Comment: Reason For Exam: Diagnosis: Shortness of Breath 01/08/18 17:59 Oxygen NASAL CANNULA 2 lpm Comment: Diagnosis: Shortness of Breath Respiratory Nebulizer UD Comment: Diagnosis: Shortness of Breath Respiratory Therapy Consult ROUTINE Comment: Reason For Exam: Diagnosis: Shortness of Breath 01/08/18 18:04 Respiratory Nebulizer STAT Comment: Diagnosis: Shortness of Breath 01/08/18 19:00 Respiratory MDI BID Comment: Diagnosis: Shortness of Breath - Discharge Discharge Date: 01/09/18 Disposition: Home, Self-Care Condition: Stable Prescriptions: No Action Montelukast Sodium 10 mg [Singulair 10 MG] 10 mg PO DAILY Verapamil HCl 40 mg PO TID Roflumilast [Daliresp] 500 mcg PO DAILY Lisinopril 10 mg PO DAILY Levothyroxine Sodium 50 mcg PO DAILY Gemfibrozil 600 mg PO BID Budesonide/Formoterol Fumarate [Symbicort 160-4.5 Mcg Inhaler] 2 puff IN BID Aspirin 81 mg PO HS Follow up with: GISEL SMALL [Primary Care Provider] - 1 Week
[2018-01-09] MEDS ORDERED: ECOTRIN 81 MG PO SCH (22:00)
== END 2018-01-09 13:15 | disposition home or self-care (01) ==
LOC: ED 15:07 → MED SURG 18:20
PROVIDERS: ADMIT General Practice; ATTEND General Practice
DX: J44.1 Chronic obstructive pulmonary disease with (acute) exacerbation (principal); N25.89 Other disorders resulting from impaired renal tubular function; I10 Essential (primary) hypertension; E03.9 Hypothyroidism, unspecified; Z79.899 Other long term (current) drug therapy
CPT/HCPCS: 36000; 36415; 71045; 80053; 83605; 83735; 84484; 85025; 85379; 87040; 93005; 94150; 94640; 94760; 96374; 99285; G0378; J7609; J0456; J0696; J2930; A9270-GY

== ENCOUNTER 2021-02-27 09:28 | Day surgery (SDC) | payer MEDICARE ==
[~2021-02-27 09:28] MED LIST: ACETAZOLAMIDE 250 MG TABLET PO ONE; Ak-Dilate OPHTHALMIC*** 1.065 ML, Cyclogyl 1% OPHTH SOL 5 ML 1.065 ML, GATIFLOXACIN 0.5... OP ONE; BETADINE 5% OPHTHALMIC 30 ML OP ONE; Lactated Ringers 1,000 ML IV SCH; NON-FORMULARY ITEM OP ONE; TETRACAINE 0.5% STERI-UNIT SOL OP ONE; Zofran 4 MG/2 ML VIAL IV PRN; cefUROXime sodium 0.005 GM in Sodium Chloride Flush 30 ML*** 0.5 ML IJ SCH
[2021-02-27] MEDS ORDERED: Lactated Ringers 1,000 ML IV ONE (09:50)
[2021-02-27] MEDS ORDERED: LIDOCAINE HCL 1% 50 MG/5 ML VL PF IJ ONE (10:00)
[2021-02-27] MEDS ORDERED: Epinephrine Preservative Free 1 MG/ML IJ ONE (10:00)
[2021-02-27] MEDS ORDERED: DIPRIVAN 200 MG/20 ML IV ONE (10:38)
[2021-02-27] MEDS ORDERED: ROBINUL ONE (10:38)
[2021-02-27] MEDS ORDERED: Xylocaine-Mpf 2% 5 Ml Vial ONE (10:38)
[2021-02-27 11:58] VITALS: O2SAT 97
[2021-02-27 11:59] VITALS: BP 140/82; PULSE 80
== END 2021-02-27 12:25 | disposition home or self-care (01) ==
LOC: SDC 09:28
PROVIDERS: ATTEND Ophthalmology
DX: H25.812 Combined forms of age-related cataract, left eye (principal); Z79.899 Other long term (current) drug therapy
CPT/HCPCS: 99100; C1780; J0171; J2001; J2704; A9270-GY

== ENCOUNTER 2021-04-03 09:40 | Day surgery (SDC) | payer MEDICARE ==
[~2021-04-03 09:40] MED LIST changes: +DIPRIVAN 200 MG/20 ML IV ONE; +Epinephrine Preservative Free 1 MG/ML INTRAOP ONE; +LIDOCAINE HCL 1% 50 MG/5 ML VL PF IJ ONE; +ROBINUL ONE
[2021-04-03] MEDS ORDERED: Lactated Ringers 1,000 ML IV ONE (09:54)
[2021-04-03 12:48] VITALS: BP 145/83; PULSE 73; O2SAT 97
== END 2021-04-03 12:50 | disposition home or self-care (01) ==
LOC: SDC 09:40
PROVIDERS: ATTEND Ophthalmology
DX: H25.811 Combined forms of age-related cataract, right eye (principal); Z79.899 Other long term (current) drug therapy
CPT/HCPCS: 99100; C1780; J0171; J2001; J2704; A9270-GY

== ENCOUNTER 2022-05-31 23:38 | Emergency (ER) | payer MEDICARE ==
[2022-06-01 00:08] LABS: Absolute Neutrophil Ct (ANC) 9.19 x10^3/uL (1.4-6.9); Basophil (Absolute #) 0.04 x10^3/uL (0-0.4); Eosinophil % 0.8 % (0.00-5.0); Eosinophil (Absolute #) 0.11 x10^3/uL (0-0.5); Hematocrit 38.7 % (42-50); Hemoglobin 12.5 g/dL (12.5-18.0); Lymphocyte (Absolute #) 2.36 x10^3/uL (1.0-4.6); Lymphocytes % 18.2 % (24.0-44.0); Mean Cell Volume 96.8 fL (78-100); Mean Corpuscular Hemoglobin 31.3 pg (26-32); Mean Corpuscular Hgb Concent. 32.3 g/dL (32-36); Mean Platelet Volume 10.7 fL (7.5-11.0); Monocyte (Absolute #) 1.21 x10^3/uL (0.0-1.3); Monocytes % 9.3 % (0.0-12.0); Neutrophil % 70.7 % (36.0-66.0); Platelet Count 323 x10^3/uL (150-450); Red Cell Distribution Width 13.3 % (11.5-14.0)
[2022-06-01 00:22] LABS: INR 1.07 (0.8-3.0); PROTIME 11.3 SECONDS (9.4-12.5); PTT 26.8 SECONDS (25.1-36.5)
--- NOTE | 2022-06-01 00:24 | ERPHSYRPT ---
- History of Present Illness Historian: patient Exam Limitations: no limitations Patient Subjective Stated Complaint: shortness of breath and chest pain Triage Nursing Assessment: pt ambulated into ER without diff, sister at bedside. Pt c/o shortness of breath and just started home oxygen 04/24/22 at 2L n/c. Pt has some chest pain across the front of his chest but does not radiate anywhere. This has been occuring off and on x1 week. Pt has hx of copd. Pt denies any cough, nausea or vomiting. Pt states the pain occurs with exertion. Lungs clear but diminished anterior bilat and diminished posterior bilat. Physician History: 71 yo wm cc of mid-sternal chest pain when he exerted himself at 22:00. Pain was mid-sternal and without radiation. It had subsided by the time he arrived to the ER. He denies N/V/diaphoresis but was dyspneic w the pain. Pt is 2L O2 dependent since April and states that his chest hurts when he exerts himself wo O2 which he was not using tonight. He denies h/o VA/CAD/CHF but does have hyperlipidemia/HTN and soked 1+ PPD until 1993. Pt denies cough/coryza. Timing/Duration: other (22:00) Quality: aching, tightness Location: substernal Chest Pain Radiation: no radiation Severity of Pain-Max: severe Severity of Pain-Current: mild Modifying Factors: Improves With: nothing, movement Associated Symptoms: shortness of breath, hurts to breathe Prior Chest Pain/Cardiac Workup: non-cardiac Nitro Today/Relief: no nitro taken today Aspirin Treatment Today: 81 mg x 1 Allergies/Adverse Reactions: No Known Drug Allergies Allergy (Verified 05/31/22 23:56) Home Medications: Aspirin 81 mg PO HS 01/08/18 [History] Levothyroxine Sodium 50 mcg PO DAILY 01/08/18 [History] Montelukast Sodium 10 mg [Singulair 10 MG] 10 mg PO DAILY 01/08/18 [History] Roflumilast [Daliresp] 500 mcg PO DAILY 01/08/18 [History] Verapamil HCl 80 mg PO DAILY 01/08/18 [History] Cinacalcet HCl 30 mg PO UD 02/19/21 [History] Fenofibrate,Micronized [Fenofibrate] 600 mg PO BID 02/19/21 [History] Losartan Potassium 50 mg [Cozaar 50 MG] 50 mg PO DAILY 02/19/21 [History] Prednisone 10 mg [Deltasone 10 mg] 5 mg PO DAILY 02/19/21 [History] Primidone 50 MG [Mysoline 50Mg] 100 mg PO DAILY 02/19/21 [History] atenoloL [Atenolol] 25 mg PO DAILY 02/19/21 [History] Albuterol Sulfate [Proair Respiclick] 2 puffs IH QID PRN PRN 06/01/22 [History] Budesonide/Glycopyr/Formoterol [Breztri Aerosphere Inhaler] 2 puffs IH BID 06/01/22 [History] Verapamil HCl 40 mg PO HS 06/01/22 [History] Hx Tetanus, Diphtheria Vaccination/Date Given: Yes Hx Influenza Vaccination/Date Given: Yes Hx Pneumococcal Vaccination/Date Given: No Immunizations Up to Date: Yes Travel Risk - International Travel Have you traveled outside of the country in past 3 weeks: No - Coronavirus Screening Are you exhibiting any of the following symptoms?: Yes Symptoms: Shortness of Breath Close contact with a COVID-19 positive Pt in past 14-21 Days: No - Vaccine Status Have you recieved a Covid-19 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: 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[employer]: [employer] - Review of Systems Constitutional: No Symptoms Eyes: No Symptoms Ears, Nose, & Throat: No Symptoms Respiratory: No Symptoms, Dyspnea Cardiac: No Symptoms, Chest Pain Abdominal/Gastrointestinal: No Symptoms Genitourinary Symptoms: No Symptoms Musculoskeletal: No Symptoms Skin: No Symptoms Neurological: No Symptoms Psychological: No Symptoms Endocrine: No Symptoms Hematologic/Lymphatic: No Symptoms Immunological/Allergic: No Symptoms - Past Medical History Pertinent Past Medical History: Yes Neurological History: No Pertinent History ENT History: Cataracts Cardiac History: Hypertension Respiratory History: Bronchitis, COPD Endocrine Medical History: Hypothyroidism Musculoskeletal History: No Pertinent History GI Medical History: No Pertinent History History: Other Psycho-Social History: No Pertinent History Male Reproductive Disorders: No Pertinent History Other Medical History: Follows Dr Esparza for renal insufficiency. - Past Surgical History Past Surgical History: Yes Neuro Surgical History: No Pertinent History Cardiac: No Pertinent History Respiratory: No Pertinent History Gastrointestinal: Hernia Repair Genitourinary: No Pertinent History Musculoskeletal: No Pertinent History Male Surgical History: No Pertinent History - Social History Smoking Status: Former smoker How long have you smoked: 27 years Exposure to second hand smoke: No Drug Use: none Patient Lives Alone: Yes - Nursing Vital Signs Nursing Vital Signs: Initial Vital Signs Temperature 97.4 F 05/31/22 23:39 Respiratory Rate 26 H 05/31/22 23:39 Blood Pressure 215/131 05/31/22 23:39 O2 Sat by Pulse Oximetry 98 05/31/22 23:39 Pain Scale Pain Intensity 0 Hypertensive/Tachypneic - Physical Exam General Appearance: no apparent distress Eye Exam: PERRL/EOMI, eyes nml inspection Ears, Nose, Throat Exam: normal ENT inspection, TMs normal, pharynx normal, moist mucous membranes Neck Exam: normal inspection, non-tender, supple, full range of motion, No meningismus, No mass, No Brudzinski, No Kernig's, No carotid bruit Respiratory Exam: normal breath sounds, lungs clear, airway intact, No respiratory distress Cardiovascular Exam: regular rate/rhythm, normal heart sounds, normal peripheral pulses, capillary refill <2 sec, No murmur Gastrointestinal/Abdomen Exam: soft, normal bowel sounds, No tenderness Back Exam: normal inspection, normal range of motion, No CVA tenderness, No v ertebral tenderness Extremity Exam: normal inspection, normal range of motion Neurologic Exam: alert, oriented x 3, cooperative, phlebotomy support tech II-XII nml as tested, normal mood/affect, nml cerebellar function, nml station & gait, sensation nml Skin Exam: normal color, warm, dry Lymphatic Exam: No adenopathy SpO2 Interpretation: normal SpO2: 100 O2 Delivery: Room Air - Course Nursing assessment & vital signs reviewed: Yes EKG Interpreted by Me: RATE (NSR/Rate 72/Normal QT-QTc/No acute ST sewgment changes) - Radiology Exams Chest X-ray Interpretation: Interpreted by me (CXR/NAD) Ordered Tests: Active Orders 24 hr Category Date Time Status AMA [Release AMA] OM.NOW Care 06/01/22 03:21 Completed EKG-ER Only STAT Care 05/31/22 23:45 Completed CHEST 1 VIEW (PORTABLE) Stat Exams 05/31/22 23:45 Taken CBC W DIFF Stat Lab 05/31/22 23:45 Completed CMP Stat Lab 05/31/22 23:45 Completed NT PRO BNP Stat Lab 05/31/22 23:45 Completed PROTIME WITH INR Stat Lab 05/31/22 23:45 Completed PTT Stat Lab 05/31/22 23:45 Completed TROPONIN Q4H Lab 05/31/22 23:45 Completed Lab/Rad Data: Laboratory Result Diagrams 05/31/22 23:45 05/31/22 23:45 Laboratory Results 05/31/22 05/31/22 05/31/22 Range/Units 23:45 23:45 23:45 WBC (4.0-10.5) x10^3/uL RBC (4.1-5.6) x10^6/uL Hgb (12.5-18.0) g/dL Hct (42-50) % MCV (78-100) fL MCH (26-32) pg MCHC (32-36) g/dL RDW (11.5-14.0) % Plt Count (150-450) x10^3/uL MPV (7.5-11.0) fL Gran % (36.0-66.0) % Immature Gran % (Auto) (0.00-0.4) % Nucleat RBC Rel Count (0.00-0.1) % Eos # (Auto) (0-0.5) x10^3/uL Immature Gran # (Auto) (0.00-0.03) x10^3u/L Absolute Lymphs (auto) (1.0-4.6) x10^3/uL Absolute Monos (auto) (0.0-1.3) x10^3/uL Absolute Nucleated RBC (0.00-0.01) x10^3u/L Lymphocytes % (24.0-44.0) % Monocytes % (0.0-12.0) % Eosinophils % (0.00-5.0) % Basophils % (0.0-0.4) % Absolute Granulocytes (1.4-6.9) x10^3/uL Basophils # (0-0.4) x10^3/uL PT 11.3 (9.4-12.5) SECONDS INR 1.07 (0.8-3.0) APTT 26.8 (25.1-36.5) SECONDS Sodium 142 (137-145) mmol/L Potassium 4.3 (3.5-5.1) mmol/L Chloride 106 (98-107) mmol/L Carbon Dioxide 25 (22-30) mmol/L Anion Gap 15.6 H (5-15) MEQ/L BUN 32 H (9-20) mg/dL Creatinine 1.64 H (0.66-1.25) mg/dL Estimated GFR 44.1 ML/MIN Glucose 98 (74-106) mg/dL Calcium 9.5 (8.4-10.2) mg/dL Total Bilirubin 0.40 (0.2-1.3) mg/dL AST 34 (17-59) U/L ALT 20 (0-50) U/L Alkaline Phosphatase 86 (38-126) U/L Troponin I (0.000-0.034) ng/mL NT-Pro-B Natriuret Pep 67.0 (0-900) pg/mL Serum Total Protein 8.3 H (6.3-8.2) g/dL Albumin 4.6 (3.5-5.0) g/dL Influenza Type A Ag NEGATIVE (NEGATIVE) Influenza Type B Ag NEGATIVE (NEGATIVE) RSV (PCR) NEGATIVE (Negative) SARS-CoV-2 (PCR) NEGATIVE (NEGATIVE) 05/31/22 05/31/22 Range/Units 23:45 23:45 WBC 13.0 H (4.0-10.5) x10^3/uL RBC 4.00 L (4.1-5.6) x10^6/uL Hgb 12.5 (12.5-18.0) g/dL Hct 38.7 L (42-50) % MCV 96.8 (78-100) fL MCH 31.3 (26-32) pg MCHC 32.3 (32-36) g/dL RDW 13.3 (11.5-14.0) % Plt Count 323 (150-450) x10^3/uL MPV 10.7 (7.5-11.0) fL Gran % 70.7 H (36.0-66.0) % Immature Gran % (Auto) 0.7 H (0.00-0.4) % Nucleat RBC Rel Count 0.0 (0.00-0.1) % Eos # (Auto) 0.11 (0-0.5) x10^3/uL Immature Gran # (Auto) 0.09 H (0.00-0.03) x10^3u/L Absolute Lymphs (auto) 2.36 (1.0-4.6) x10^3/uL Absolute Monos (auto) 1.21 (0.0-1.3) x10^3/uL Absolute Nucleated RBC 0.00 (0.00-0.01) x10^3u/L Lymphocytes % 18.2 L (24.0-44.0) % Monocytes % 9.3 (0.0-12.0) % Eosinophils % 0.8 (0.00-5.0) % Basophils % 0.3 (0.0-0.4) % Absolute Granulocytes 9.19 H (1.4-6.9) x10^3/uL Basophils # 0.04 (0-0.4) x10^3/uL PT (9.4-12.5) SECONDS INR (0.8-3.0) APTT (25.1-36.5) SECONDS Sodium (137-145) mmol/L Potassium (3.5-5.1) mmol/L Chloride (98-107) mmol/L Carbon Dioxide (22-30) mmol/L Anion Gap (5-15) MEQ/L BUN (9-20) mg/dL Creatinine (0.66-1.25) mg/dL Estimated GFR ML/MIN Glucose (74-106) mg/dL Calcium (8.4-10.2) mg/dL Total Bilirubin (0.2-1.3) mg/dL AST (17-59) U/L ALT (0-50) U/L Alkaline Phosphatase (38-126) U/L Troponin I < 0.012 (0.000-0.034) ng/mL NT-Pro-B Natriuret Pep (0-900) pg/mL Serum Total Protein (6.3-8.2) g/dL Albumin (3.5-5.0) g/dL Influenza Type A Ag (NEGATIVE) Influenza Type B Ag (NEGATIVE) RSV (PCR) (Negative) SARS-CoV-2 (PCR) (NEGATIVE) - Progress Progress Note: 06/01/22 00:29 ECHO 11/12/21 EF 60-65%/Mild LVH/Trace MR/Diastolic dysfunction 06/01/22 03:18 Pt refused 2nd troponin and elected to leave AMA because he does not want to wait/Risks including VA/ explained to pt 06/01/22 05:17 Counseled pt/family regarding: lab results, diagnosis, need for follow-up, rad results - Departure Departure Disposition: AMA Clinical Impression: Chest pain Condition: Stable Critical Care Time: Yes Critical Care Time(excluding separately billable procedures): Critical 30-74 mins Referrals: GISEL SMALL [Primary Care Provider] - Follow up/PCP as directed Instructions: Chest Pain (DC) Additional Instructions: Follow up with your family MD Return to ER for increasing chest pain or shortness of breath
[2022-06-01 00:29] LABS: ALBUMIN 4.6 g/dL (3.5-5.0); ANION GAP 15.6 MEQ/L (5-15); BILIRUBIN,TOTAL 0.4 mg/dL (0.2-1.3); Calcium 9.5 mg/dL (8.4-10.2); Creatinine 1 1.64 mg/dL (0.66-1.25); EST GLOMERULAR FILTRATION RATE 44.1 ML/MIN; Potassium 4.3 mmol/L (3.5-5.1); Total Protein 8.3 g/dL (6.3-8.2)
[2022-06-01 00:45] LABS: INFLUENZA A NEGATIVE (NEGATIVE); INFLUENZA B NEGATIVE (NEGATIVE); RESPIRATORY SYNCTIAL VIRUS NEGATIVE (Negative); SARS-CoV-2 Xpert Express NEGATIVE (NEGATIVE)
[2022-06-01 03:05] VITALS: BP 175/75; PULSE 75; O2SAT 100
--- NOTE | 2022-06-01 07:44 | XRAY ---
Indication: Dyspnea. Comparison: January 28, 2022 Portable apical lordotic chest unchanged again demonstrating mild left base subsequent atelectasis/scarring. Remaining heart and lungs unremarkable. Bony thorax intact again with osteopenia and degenerative changes. No new/acute findings.
== END 2022-06-01 03:28 | disposition home or self-care (01) ==
LOC: ED 23:38
DX: R07.9 Chest pain, unspecified (principal); E78.5 Hyperlipidemia, unspecified; I10 Essential (primary) hypertension; J44.9 Chronic obstructive pulmonary disease, unspecified; Z99.81 Dependence on supplemental oxygen; Z79.52 Long term (current) use of systemic steroids; Z79.899 Other long term (current) drug therapy
CPT/HCPCS: 0241U; 36000; 36415; 71045; 80053; 83880; 84484; 85025; 85610; 85730; 93005; 99284; 99291

== ENCOUNTER 2023-09-02 15:47 | Emergency (ER) | payer MEDICARE ==
[2023-09-02] MEDS ORDERED: Sterile H2O 10 ml IJ ONE (16:28)
[2023-09-02] MEDS ORDERED: solu-MEDROL ONE (16:28)
[2023-09-02] MEDS: solu-MEDROL 125 MG, Sterile H2O 10 ml 2 ML IV ONE (16:32)
[2023-09-02] MEDS ORDERED: DUONEB 0.5-3 MG/3 ml Neb IH ONE (16:34)
[2023-09-02] MEDS: DUONEB 0.5-3 MG/3 ml Neb IH ONE (16:35)
[2023-09-02 16:54] LABS: Hematocrit 28.1 % (42-50); Hemoglobin 9.1 g/dL (12.5-18.0); Mean Cell Volume 82.6 fL (78-100); Mean Corpuscular Hemoglobin 26.8 pg (26-32); Mean Corpuscular Hgb Concent. 32.4 g/dL (32-36); Mean Platelet Volume 10.9 fL (7.5-11.0); Platelet Count 534 x10^3/uL (150-450); Red Cell Distribution Width 17.6 % (11.5-14.0)
[2023-09-02 16:58] LABS: White Blood Count 26.2 x10^3/uL (4.0-10.5)
[2023-09-02 17:18] LABS: ALBUMIN 3.7 g/dL (3.5-5.0); ANION GAP 15.1 MEQ/L (5-15); BILIRUBIN,TOTAL 1.6 mg/dL (0.2-1.3); Calcium 7.4 mg/dL (8.4-10.2); Creatinine 1 1.91 mg/dL (0.66-1.25); EST GLOMERULAR FILTRATION RATE 36.3 ML/MIN; Total Protein 7.6 g/dL (6.3-8.2)
[2023-09-02 17:24] LABS: Potassium 5.8 mmol/L (3.5-5.1)
[2023-09-02 17:30] LABS: INFLUENZA A NEGATIVE (NEGATIVE); INFLUENZA B NEGATIVE (NEGATIVE); RESPIRATORY SYNCTIAL VIRUS NEGATIVE (NEGATIVE); SARS-CoV-2 Xpert Express NEGATIVE (NEGATIVE)
--- NOTE | 2023-09-02 18:07 | ERPHSYRPT ---
- History of Present Illness Time Seen by Provider: 09/02/23 15:55 Source: patient Exam Limitations: no limitations Patient Subjective Stated Complaint: pt c/o of being SOB for the past couple of weeks and diarrhea for about 3 weeks and right flank pain Triage Nursing Assessment: Pt brought to the ER by his sister, hypertensive, rates right flank pain as 8/10, pt states that he is always short of breath due to having COPD, pulses normal, came to the ER room in a wheelchair, appears weak, is wearing a monitoring device on his ankle, pt did a breathing treatment today around [id number], skin n/w/d, sitting on side of bed and states that he can breath better sitting on the side Physician History: 73-year-old male presents to our ED for evaluation of shortness of breath x 2 weeks and diarrhea x 3 weeks. Patient also complains of right-sided flank pain rated 8 out of 10. Patient states he is chronically short of breath secondary to his COPD. Patient with shortness of breath somewhat worse. Shortness of breath worse with exertion improved with rest. No associated chest pain. No nausea vomiting or diaphoresis. Symptoms are progressive. Symptoms are moderate in intensity. Patient voices no other complaints or concerns at this time. Portions of this note were created with voice recognition technology. There may be grammatical, spelling, punctuation or sound alike errors Timing/Duration: week(s) (2 weeks) Severity: moderate Modifying Factors: Improves With: nothing Associated Symptoms: denies symptoms Allergies/Adverse Reactions: amoxicillin Allergy (Verified 09/02/23 16:00) Home Medications: Aspirin 81 mg PO HS 01/08/18 [History] Levothyroxine Sodium 50 mcg PO DAILY 01/08/18 [History] Montelukast Sodium 10 mg [Singulair 10 MG] 10 mg PO DAILY 01/08/18 [History] Roflumilast [Daliresp] 500 mcg PO DAILY 01/08/18 [History] Verapamil HCl 80 mg PO DAILY 01/08/18 [History] Cinacalcet HCl 30 mg PO UD 02/19/21 [History] Fenofibrate,Micronized [Fenofibrate] 600 mg PO BID 02/19/21 [History] Losartan Potassium 50 mg [Cozaar 50 MG] 50 mg PO DAILY 02/19/21 [History] Prednisone 10 mg [Deltasone 10 mg] 5 mg PO DAILY 02/19/21 [History] Primidone 50 MG [Mysoline 50Mg] 100 mg PO DAILY 02/19/21 [History] atenoloL [Atenolol] 25 mg PO DAILY 02/19/21 [History] Albuterol Sulfate [Proair Respiclick] 2 puffs IH QID PRN PRN 06/01/22 [History] Budesonide/Glycopyr/Formoterol [Breztri Aerosphere Inhaler] 2 puffs IH BID 1 08/01/21 [History] Verapamil HCl 40 mg PO HS 06/01/22 [History] Hx Tetanus, Diphtheria Vaccination/Date Given: Yes Hx Influenza Vaccination/Date Given: Yes Hx Pneumococcal Vaccination/Date Given: No Travel Risk - International Travel Have you traveled outside of the country in past 3 weeks: No - Coronavirus Screening Are you exhibiting any of the following symptoms?: No Close contact with a COVID-19 positive Pt in past 14-21 Days: No - Vaccine Status Have you recieved a Covid-19 vaccination: Yes [employer]: [employer] - Review of Systems Constitutional: No Symptoms, No Fever, No Chills Eyes: No Symptoms Ears, Nose, & Throat: No Symptoms Respiratory: No Symptoms, No Cough, No Dyspnea Cardiac: No Symptoms, No Chest Pain, No Edema, No Syncope Abdominal/Gastrointestinal: No Symptoms, No Abdominal Pain, No Nausea, No Vomiting, No Diarrhea Genitourinary Symptoms: No Symptoms, No Dysuria Musculoskeletal: No Symptoms, No Back Pain, No Neck Pain Skin: No Symptoms, No Rash Neurological: No Symptoms, No Dizziness, No Focal Weakness, No Sensory Changes Psychological: No Symptoms Endocrine: No Symptoms Hematologic/Lymphatic: No Symptoms Immunological/Allergic: No Symptoms All Other Systems: Reviewed and Negative - Past Medical History Pertinent Past Medical History: Yes Neurological History: No Pertinent History ENT History: Cataracts Cardiac History: Hypertension Respiratory History: Bronchitis, COPD Endocrine Medical History: Hypothyroidism Musculoskeletal History: No Pertinent History GI Medical History: No Pertinent History History: Other Psycho-Social History: No Pertinent History Male Reproductive Disorders: No Pertinent History Other Medical History: Follows Dr Esparza for renal insufficiency. - Past Surgical History Past Surgical History: Yes Neuro Surgical History: No Pertinent History Cardiac: No Pertinent History Respiratory: No Pertinent History Gastrointestinal: Hernia Repair Genitourinary: No Pertinent History Musculoskeletal: No Pertinent History Male Surgical History: No Pertinent History - Social History Smoking Status: Former smoker How long have you smoked: 27 years Exposure to second hand smoke: No Drug Use: none Patient Lives Alone: Yes - Nursing Vital Signs Nursing Vital Signs: Initial Vital Signs Pulse Rate 96 H 09/02/23 15:49 Respiratory Rate 15 09/02/23 15:49 Blood Pressure 147/72 09/02/23 15:49 O2 Sat by Pulse Oximetry 99 09/02/23 15:49 Pain Scale Pain Intensity 8 - Physical Exam General Appearance: no apparent distress, alert Eye Exam: PERRL/EOMI, eyes nml inspection Ears, Nose, Throat Exam: normal ENT inspection, TMs normal, pharynx normal, moist mucous membranes Neck Exam: normal inspection, non-tender, supple, full range of motion Respiratory Exam: normal breath sounds, lungs clear, No respiratory distress Cardiovascular Exam: regular rate/rhythm, normal heart sounds, normal peripheral pulses Gastrointestinal/Abdomen Exam: soft, normal bowel sounds, No tenderness, No mass Back Exam: normal inspection, normal range of motion, No CVA tenderness, No ve rtebral tenderness Extremity Exam: normal inspection, normal range of motion, pelvis stable Neurologic Exam: alert, oriented x 3, cooperative, normal mood/affect, nml cerebellar function, nml station & gait, sensation nml, No motor deficits Skin Exam: normal color, warm, dry, No rash Lymphatic Exam: No adenopathy SpO2 Interpretation: normal SpO2: 99 O2 Delivery: Room Air - Course Nursing assessment & vital signs reviewed: Yes EKG Interpreted by Me: RATE (94), Sinus Rhythm, NORMAL AXIS, NORMAL INTERVALS - CT Exams Chest CT Interpretation: Tele-radiologist Report (Compared to 03/19/2018 again emphysema and minimal bibasilar fibrosis/scarring. No new acute findings) Abdomen/Pelvis CT Interpretation: Tele-radiologist Report Ordered Tests: Active Orders 24 hr Category Date Time Status Furnishings Conservator STAT Care 09/02/23 16:23 Active EKG-ER Only STAT Care 09/02/23 16:23 Active IV Insertion STAT Care 09/02/23 16:23 Active Pulse Oximetry (ED) STAT Care 09/02/23 16:23 Active ABDOMEN AND PELVIS W/0 CONTRAS [CT] Stat Exams 09/02/23 18:09 Taken CHEST WITHOUT CONTRAST [CT] Stat Exams 09/02/23 18:04 Taken BLOOD CULTURE Stat Lab 09/02/23 17:18 Received CBC W DIFF Stat Lab 09/02/23 16:10 Results CMP Stat Lab 09/02/23 16:10 Completed D-DIMER QUANTITATIVE Stat Lab 09/02/23 16:10 Completed Manual Differential NC Stat Lab 09/02/23 16:10 Results NT PRO BNPII Stat Lab 09/02/23 16:10 Completed Pathologist Review Stat Lab 09/02/23 16:10 Results TROPONIN Q4H Lab 09/02/23 16:10 Completed TROPONIN Q4H Lab 09/02/23 20:10 Completed TROPONIN Q4H Lab 09/03/23 00:30 Ordered UA W/RFX UR CULTURE Stat Lab 09/02/23 18:03 Ordered Respiratory Therapy Assessment DAILY RT 09/02/23 16:40 Active Medication Summary Generic Name Dose Route Start Last Admin Trade Name Freq PRN Reason Stop Dose Admin Sodium Chloride 1,000 mls @ 100 mls/hr 09/02/23 18:15 09/02/23 18:11 Sodium Chloride 0.9% 1000 Ml IV 10/02/23 18:14 100 mls/hr .Q10H TERESA Administration Metronidazole 500 mg in 100 mls @ 200 mls/hr 09/03/23 00:00 Flagyl 500 Mg Ivpb IV 10/03/23 00:00 Q6HT TERESA Discontinued Medications Generic Name Dose Route Start Last Admin Trade Name Freq PRN Reason Stop Dose Admin Albuterol/Ipratropium 3 ml 09/02/23 16:23 09/02/23 16:35 Ipratropium/Albuterol Sulfate 3 Ml Ampul.Neb IH 09/02/23 16:24 3 ml STAT ONE Administration Albuterol/Ipratropium Confirm 09/02/23 16:34 Ipratropium/Albuterol Sulfate 3 Ml Ampul.Neb Administered 09/02/23 16:35 Dose 3 ml IH .STK-MED ONE Methylprednisolone Sodium 0 mg 09/02/23 16:23 09/02/23 16:32 Succinate 125 mg/ Sterile IV 09/02/23 16:24 125 mg Water 2 ml STAT ONE Administration Levofloxacin/Dextrose 500 mg in 100 mls @ 100 mls/hr 09/02/23 21:39 09/02/23 22:00 Levofloxacin 500mg/100ml D5w IV 09/02/23 22:38 100 ml/hr STAT STA 100 mls/hr Administration Levofloxacin/Dextrose Confirm 09/02/23 21:58 Levofloxacin 500mg/100ml D5w Administered 09/02/23 21:59 Dose 500 mg in 100 mls @ ud IV .STK-MED ONE Lorazepam 1 mg 09/02/23 18:47 09/02/23 18:52 Lorazepam 2 Mg/1 Ml 2 Mg Vial IV 09/02/23 18:48 1 mg ONCE STA Administration Lorazepam Confirm 09/02/23 18:50 Lorazepam 2 Mg/1 Ml 2 Mg Vial Administered 09/02/23 18:51 Dose 2 mg .ROUTE .STK-MED ONE Methylprednisolone Sodium Succinate Confirm 09/02/23 16:28 Methylprednis Sod Succ 125 Mg/2 Ml Vial Administered 09/02/23 16:29 Dose 125 mg .ROUTE .STK-MED ONE Sterile Water Confirm 09/02/23 16:28 Water For Injection,Sterile 10 Ml Vial Administered 09/02/23 16:29 Dose 10 ml IJ .STK-MED ONE Lab/Rad Data: Laboratory Result Diagrams 09/02/23 16:10 09/02/23 16:10 Laboratory Results 09/02/23 09/02/23 09/02/23 Range/Units Unknown 20:10 16:10 WBC (4.0-10.5) x10^3/uL RBC (4.1-5.6) x10^6/uL Hgb (12.5-18.0) g/dL Hct (42-50) % MCV (78-100) fL MCH (26-32) pg MCHC (32-36) g/dL RDW (11.5-14.0) % Plt Count (150-450) x10^3/uL MPV (7.5-11.0) fL Segmented Neutrophils (36.-66.) % Band Neutrophils (0.0-2.0) % Lymphocytes (Manual) (24-44) % Monocytes (Manual) (0.0-12.0) % Hypochromia Toxic Granulation Platelet Estimate (NORMAL) RBC Morphology Polychromasia Anisocytosis Smear Path Review D-Dimer (0.0-0.50) mg/L Sodium (137-145) mmol/L Potassium (3.5-5.1) mmol/L Chloride (98-107) mmol/L Carbon Dioxide (22-30) mmol/L Anion Gap (5-15) MEQ/L BUN (9-20) mg/dL Creatinine (0.66-1.25) mg/dL Estimated GFR ML/MIN Glucose (74-106) mg/dL Calcium (8.4-10.2) mg/dL Total Bilirubin (0.2-1.3) mg/dL AST (17-59) U/L ALT (0-50) U/L Alkaline Phosphatase (38-126) U/L Troponin I 0.016 0.018 (0.000-0.034) ng/mL NT-Pro-B Natriuret Pep (<300) pg/mL Serum Total Protein (6.3-8.2) g/dL Albumin (3.5-5.0) g/dL Influenza Type A Ag NEGATIVE (NEGATIVE) Influenza Type B Ag NEGATIVE (NEGATIVE) RSV (PCR) NEGATIVE (NEGATIVE) SARS-CoV-2 (PCR) NEGATIVE (NEGATIVE) 09/02/23 09/02/23 09/02/23 Range/Units 16:10 16:10 16:10 WBC 26.2 H* (4.0-10.5) x10^3/uL RBC 3.40 L (4.1-5.6) x10^6/uL Hgb 9.1 L (12.5-18.0) g/dL Hct 28.1 L (42-50) % MCV 82.6 (78-100) fL MCH 26.8 (26-32) pg MCHC 32.4 (32-36) g/dL RDW 17.6 H (11.5-14.0) % Plt Count 534 H (150-450) x10^3/uL MPV 10.9 (7.5-11.0) fL Segmented Neutrophils 91 H (36.-66.) % Band Neutrophils 4 H (0.0-2.0) % Lymphocytes (Manual) 4 L (24-44) % Monocytes (Manual) 1 (0.0-12.0) % Hypochromia 1+ Toxic Granulation 1+ Platelet Estimate NORMAL (NORMAL) RBC Morphology ABNORMAL Polychromasia 1+ Anisocytosis 1+ Smear Path Review Pending D-Dimer 8.65 H* (0.0-0.50) mg/L Sodium 129 L (137-145) mmol/L Potassium 5.8 H (3.5-5.1) mmol/L Chloride 100 (98-107) mmol/L Carbon Dioxide 19 L (22-30) mmol/L Anion Gap 15.1 H (5-15) MEQ/L BUN 50 H (9-20) mg/dL Creatinine 1.91 H (0.66-1.25) mg/dL Estimated GFR 36.3 ML/MIN Glucose 98 (74-106) mg/dL Calcium 7.4 L (8.4-10.2) mg/dL Total Bilirubin 1.60 H (0.2-1.3) mg/dL AST 306 H (17-59) U/L ALT 122 H (0-50) U/L Alkaline Phosphatase 570 H (38-126) U/L Troponin I (0.000-0.034) ng/mL NT-Pro-B Natriuret Pep 365 (<300) pg/mL Serum Total Protein 7.6 (6.3-8.2) g/dL Albumin 3.7 (3.5-5.0) g/dL Influenza Type A Ag (NEGATIVE) Influenza Type B Ag (NEGATIVE) RSV (PCR) (NEGATIVE) SARS-CoV-2 (PCR) (NEGATIVE) - Progress Progress: improved Progress Note: CT abdomen pelvis reveals new 22.5 cm hepatomegaly with diffuse hepatic metastasis. Again tiny gallstones with no gallbladder wall thickening probable cholecystitis. New mild fluid distended small bowel with fluid leveling, ileus versus enteritis. Stable sigmoid diverticulosis. Enlarging 3 cm right renal exophytic round mass. This mass was previously 1 cm. Enlarging 4.8 cm distal AAA previously 3.7 cm 09/02/23 21:[address] Patricia vascular surgery who feels there is no immediate vascular emergency at this time. We are awaiting call from hospitalist from [facility] 09/02/23 22:48 Case discussed with ER physician at [facility] who accepts transfer. 09/02/23 23:02 73-year-old male with multiple medical problems including cholecystitis with leukocytosis liver metastasis requires multiple specialists including nephrology. Patient decided to leave AMA. I had a long discussion with patient and family regarding the high probability of if he leaves. In spite of his probability of patient decided to leave AMA. Leslie Holliday forwarded to patient's pharmacy to treat acute cholecystitis/leukocytosis Patient is of sound mind. Patient is appropriate to make informed and independent medical decisions. Patient understands that leaving AGAINST MEDICAL ADVICE can result in delayed diagnosis, increased risk of morbidity, mortality, short and long-term disability including . In spite of these risks, patient has decided to leave AGAINST MEDICAL ADVICE. Patient understands that he/she may return to our ED at any point if he or she reconsiders. Patient agrees to follow-up with his or her primary care doctor within 48 hours for reevaluation. Patient voices no other complaints or concerns at this time. We will release patient AGAINST MEDICAL ADVICE per their request. 73-year-old male presents to our ED for evaluation of progressive shortness of breath. Workup reveals acute cholecystitis leukocytosis of 26 metastatic liver disease renal mass 4.8 cm AAA. Patient also experienced acute renal injury transaminitis elevated alkaline phosphatase. Complexity of problem addressed is high, threat to bodily function No critical care time Complexity of data reviewed and analyzed is extensive. Test ordered test reviewed. Results analyzed and correlated clinically with history and physical examination. Management discussed with Dr. Fung vascular surgery and Dr. Medel ER physician at [facility] who accepts transfer. Patient refused transfer. Risk of complication and or risk of morbidity/mortality of patient management is high patient requires hospitalization/transfer to higher level of care but has refused. Vital stable. Time spent to discharge patient is approximately 45 minutes. No social determinants of health present impede follow-up. Portions of this note were created with voice recognition technology. There may be grammatical, spelling, punctuation or sound alike errors 09/02/23 23:54 09/02/23 23:59 Counseled pt/family regarding: lab results, diagnosis, rad results - Departure Departure Disposition: Transfer Clinical Impression: Shortness of breath, Elevated d-dimer, Normocytic anemia, Hyponatremia, Metabolic acidosis, Acute renal injury, Elevated alkaline phosphatase level, Transaminitis, Diarrhea, Dehydration, Flank pain, Emphysema lung, Metastasis to liver, Cholelithiasis, Cholecystitis, Ileus, Diverticulosis, Enlarging renal mass, AAA (abdominal aortic aneurysm) Condition: Stable Critical Care Time: No Referrals: GISEL SMALL [Primary Care Provider] - Follow up/PCP as directed Instructions: Chronic Obstructive Pulmonary Disease Additional Instructions: Discharge/Care Plan IDA HARDYMAYDA BOLAND was seen on 09/02/23 in the Emergency Room. The patient was counseled regarding Diagnosis,Lab results, Imaging studies, need for follow up and when to return to the Emergency Room. Prescriptions given: Discharge Note I have spoken with the patient and/or caregivers. I have explained the patient's condition, diagnosis and treatment plan based on the information available to me at this time. I have answered the patient's and/or caregiver's questions and addressed any concerns. The patient and/or caregivers have as good understanding of the patient's diagnosis, condition and treatment plan as can be expected at this point. The vital signs have been stable. The patient's condition is stable and appropriate for discharge from the emergency department. The patient will pursue further outpatient evaluation with the primary care physician or other designated or consulting physician as outlined in the discharge instructions. The patient and/or caregivers are agreeable to this plan of care and follow-up instructions have been explained in detail. The patient and/or caregivers have received these instruction. The patient/and or caregivers are aware that any significant change in condition or worsening of symptoms lucila uld prompt an immediate return to this or the closest emergency department or call 911. Prescriptions: Ciprofloxacin [Cipro 500 MG] 500 mg PO BID 7 Days #14 tablet Metronidazole 500 mg [Flagyl 500 MG] 500 mg PO TID #21 tablet
[2023-09-02] MEDS ORDERED: Sodium Chloride 0.9% 1000 ML 1,000 ML ONE (18:09)
[2023-09-02] MEDS: Sodium Chloride 0.9% 1000 ML 1,000 ML IV SCH (18:11)
[2023-09-02 18:31] LABS: BAND 4 % (0.0-2.0); Lymphocytes 4 % (24-44); Monocyte 1 % (0.0-12.0); Neutrophils 91 % (36.-66.); Platelet Estimate NORMAL (NORMAL); Total Cells Counted 100
[2023-09-02 18:32] LABS: Polychromasia 1+
[2023-09-02 18:33] LABS: ANISOCYTOSIS 1+
[2023-09-02 18:34] LABS: Hypochromia 1+; Toxic Granulation 1+
[2023-09-02] MEDS ORDERED: Ativan 2 MG/1 ML VIAL ONE (18:50)
[2023-09-02] MEDS: Ativan 2 MG/1 ML VIAL IV STA (18:52)
[2023-09-02 20:03] VITALS: PULSE 83
[2023-09-02 20:45] VITALS: O2SAT 99
[2023-09-02] MEDS ORDERED: Levofloxacin 500MG/100ML D5W 500 MG/100 ML BAG IV ONE (21:58)
[2023-09-02] MEDS: Levofloxacin 500MG/100ML D5W 500 MG/100 ML BAG IV STA (22:00)
[2023-09-02 23:24] VITALS: BP 160/98; RESP 19
[2023-09-03] MEDS ORDERED: FLAGYL 500 MG IVPB 500 MG/100 ML BAG IV SCH
--- NOTE | 2023-09-03 08:47 | XRAY ---
Indication: Short of breath. Weakness. Multiple contiguous axial images obtained through the chest without contrast. Comparison: March 19, 2018 Study is slightly degraded by respiration artifact throughout. Lungs again demonstrates mild diffuse pulmonary emphysema with minimal bibasilar fibrosis/scarring and a few scattered tiny calcified granulomas. Right lung base now demonstrates at least 4 cluster of noncalcified micronodules largest 7 mm. No infiltrate or effusion. Heart not enlarged again with scattered coronary calcifications. Aorta again mildly arteriosclerotic without aneurysm. Stable tiny left hilar calcified nodes. No pathologic mediastinal lymphadenopathy. Bony thorax intact again with osteopenia and flowing osteophytes throughout the spine. No suspicious bony lesions. CT abdomen/pelvis reported separately. Impression: 1. Cluster right lower lobe noncalcified micronodules. Findings may be granulomatous as there is evidence for old old granulomatous's disease elsewhere. However metastasis not completely excluded given hepatic metastasis seen on same-day CT abdomen/pelvis. 2. Chronic findings including pulmonary emphysema, fibrosis/scarring, arteriosclerotic disease, and chronic bony findings.
--- NOTE | 2023-09-03 08:52 | XRAY ---
Indication: Flank pain. Diarrhea one month. Contiguous axial images obtained through the abdomen and pelvis without contrast. Comparison: November 24, 2017 There is now mild diffuse respiration artifact throughout. CT chest reported separately. Noncontrasted stomach and bowel loops appear nonobstructed with normal appendix. There is now mild uniformly fluid distended small bowel loops with fluid leveling, ileus versus enteritis. Again scattered descending and sigmoid diverticulosis without diverticulitis. No free fluid/air. New 22.5 cm hepatomegaly with numerous diffuse hepatic hypodense metastatic lesions. Gallbladder again demonstrates a few tiny gallstones in the dependent portion. New abnormal gallbladder wall thickening up to 8 mm concerning for cholecystitis. Right kidney demonstrates interval enlarging 3 cm round soft tissue exophytic mass, previously 1 cm. Again enlarged prostate gland impresses on the base of the bladder. Remaining pancreas, spleen, adrenal glands, left kidney, ureters, and bladder are unremarkable for noncontrast exam. There remains moderate scattered arteriosclerotic calcifications with 4.8 cm distal AAA, previously 3.7 cm. Osseous structures intact again with mild degenerative changes throughout the spine. No suspicious bony lesions. Impression: 1. Respiration artifact. 2. New fluid distended small bowel loops with fluid leveling, ileus versus enteritis. 3. New hepatomegaly with diffuse hepatic metastasis. 4. Again tiny gallstones with new abnormal gallbladder wall thickening. Rule out cholecystitis. 5. Enlarging suspicious right renal exophytic mass. CT or MRI with contrast exam may yield further information. 6. Again scattered arteriosclerotic with enlarging distal AAA. 7. Chronic findings including colonic diverticulosis, enlarged prostate gland, and chronic bony findings.
== END 2023-09-03 00:20 | disposition home or self-care (01) ==
LOC: ED 15:47
DX: R06.02 Shortness of breath (principal); R79.1 Abnormal coagulation profile; D64.9 Anemia, unspecified; E87.1 Hypo-osmolality and hyponatremia; E87.20 Acidosis, unspecified; N17.9 Acute kidney failure, unspecified; R74.8 Abnormal levels of other serum enzymes; R74.01 Elevation of levels of liver transaminase levels; R19.7 Diarrhea, unspecified; E87.6 Hypokalemia; R10.9 Unspecified abdominal pain; J43.9 Emphysema, unspecified; C78.7 Secondary malignant neoplasm of liver and intrahepatic bile duct; K80.10 Calculus of gallbladder with chronic cholecystitis without obstruction; K56.7 Ileus, unspecified; K57.90 Diverticulosis of intestine, part unspecified, without perforation or abscess without bleeding; N28.89 Other specified disorders of kidney and ureter; I71.40 Abdominal aortic aneurysm, without rupture, unspecified; Z79.52 Long term (current) use of systemic steroids; Z79.899 Other long term (current) drug therapy; I10 Essential (primary) hypertension; Z20.828 Contact with and (suspected) exposure to other viral communicable diseases
CPT/HCPCS: 0241U; 36000; 36415; 71250; 74176; 80053; 83880; 84484; 85025; 85379; 87040; 93005; 93041; 94640; 94760; 96374; 96375; 99284; J1956; J2060; J2930; A9270-GY